=== PATIENT | female | born 1975 | race Caucasian/White ===

== ENCOUNTER 2018-06-20 14:03 | Inpatient (IN) | payer BC, OTHER ==
[2018-06-20] MEDS ORDERED: SODIUM CHLORIDE 0.9% 1,000 ML IV STA (14:25)
[2018-06-20] MEDS ORDERED: ONDANSETRON 4 MG/2 ML VIAL IVP STA (14:25)
[2018-06-20 15:23] LABS: Albumin 1.9 g/dL (3.5-5.0); Calcium 7.8 mg/dL (8.4-10.2); Potassium 4.2 mmol/L (3.5-5.1); Total Bilirubin 0.3 mg/dL (0.2-1.3); Total Protein 4.5 g/dL (6.3-8.2)
[2018-06-20 15:40] LABS: Bacteria,Urine Rare /hpf; Granular Casts,Urine 1784 /lpf (0); Hyaline Casts,Urine 188 /lpf (0-2); RBC,Urine >182 /hpf (0-5); Squamous Epithelial Cell,Urine 5 /hpf (0-4); WBC,Urine 138 /hpf (0-5)
[2018-06-20 15:41] LABS: Appearance,Urine Bloody (Clear); Color,Urine Red
--- NOTE | 2018-06-20 15:43 | ED ---
Abdominal Pain HPI - General Chief Complaint: Abdominal Pain Stated Complaint: abdominal pain Time Seen by Provider: 06/20/18 14:17 Source: patient Mode of arrival: ambulatory Limitations: no limitations - History of Present Illness Initial Comments: 43-year-old female presents today for chief complaint of abdominal pain. Patient states she has had extreme cramping everywhere however mostly under the right upper ribs. She states it radiates towards the low back. Patient states she has not had anything solid to eat since Monday. He states any shower she blacked out from the pain. She states that she did not hit her head and she sat down in the shower. Patient states she has had occasional vomiting her stool since then usual. Patient states she has had chills. Patient states occasionally she has had a tight feeling in the right upper chest because the whole tingling ache that she sweats and has a hot flash. Patient states last episode of emesis was earlier this morning she states it was mostly bile. Patient denies any previous abdominal surgeries. She states she struggled with chronic abdominal pain since age of 19. Patient travels for work she states when she was in [place] went to the emergency department for abdominal pain that was similar. She states was given Bentyl at that time. Patient states she had a colonoscopy as well as an endoscopy performed revealing no abnormalities noted of the Route diverticulitis. Patient states she takes no medications. Patient denies melena hematochezia fever, hematemesis. Patient denies chest pain, dyspnea or dyspnea on exertion lower extremity swelling remaining review of syst ems negative upon arrival patient is holding stomach, appears uncomfortable. - Related Data Home Medications Medication Instructions Recorded Confirmed Doxylam/PE/Dm/Acetaminophen/GG 2 cap PO Q6H PRN 06/20/18 06/20/18 [Mucinex Fast-Max Dy-Nt Cld-Flu] [place] (Unknown Dose) 1 tab PO BID PRN 06/20/18 06/20/18 Allergies Allergy/AdvReac Type Severity Reaction Status Date / Time No Known Allergies Allergy Verified 06/20/18 14:30 Review of Systems ROS Statement: Those systems with pertinent positive or pertinent negative responses have been documented in the HPI. ROS Other: All systems not noted in ROS Statement are negative. Past Medical History Additional Past Medical History / Comment(s): abdominal pain problems since age 14, IBS, HPV History of Any Multi-Drug Resistant Organisms: None Reported Additional Past Surgical History / Comment(s): Leep procedure x 2 Past Psychological History: No Psychological Hx Reported Smoking Status: Former smoker Past Alcohol Use History: Occasional Past Drug Use History: Marijuana General Exam - General Exam Comments Initial Comments: General: The patient is awake and alert, appears uncomfortable Eye: Pupils are equal, round and reactive to light, extra-ocular movements are intact. No nystagmus. There is normal conjunctiva bilaterally. No signs of icterus. Ears, nose, mouth and throat: There are moist mucous membranes and no oral lesions. Neck: The neck is supple, there is no tenderness or JVD. Cardiovascular: There is a regular rate and rhythm. No murmur, rub or gallop is appreciated. Respiratory: Lungs are clear to auscultation, respirations are non-labored, breath sounds are equal. No wheezes, stridor, rales, or rhonchi. Gastrointestinal: No noted diaphoresis, jaundice, pallor, protecting postures or squirming. Symmetrical pigmentation of abdomen without signs of inflammation. Umbilicus mildline, inverted without swelling. No dilated veins. No noted abdominal diste ntion. No visible masses. No peristalsis, aortic pulsations, or ventral hernia. Bowel sounds audible in all 4 quadrants, unremarkable. No friction rubs or venous hums. No epigastic, hepatic or abdominal bruits. Patient is tender to palpation of the epigastric and right upper quadrant, positive Stubbs's sign. Liver edge, not palpable. Spleen edge, right and left kidney not palpable. Superior bladder margin non-tender. Special Testing: Negative Rovsing, McBurney, Juliana, cutaneous hyperesthesia. Iliopsoas and obturator tests negative bilaterally. Negative Heel Jar test/jalil sign. No CVA tenderness. Digital rectal exam deferred. Negative augustine turners or cullens sign Musculoskeletal: Normal ROM, no tenderness. Strength 5/5. Sensation intact. Pulses equal bilaterally 2+. Neurological: A&O x 3. CN II-XII intact, There are no obvious motor or sensory deficits. Coordination appears grossly intact. Speech is normal. Skin: Skin is warm and dry and no rashes or lesions are noted. Psychiatric: Cooperative, appropriate mood & affect, normal judgment. Limitations: no limitations Course Vital Signs 06/20/18 06/20/18 14:06 16:42 Temperature 97.7 F Pulse Rate 117 H 85 Respiratory 20 18 Rate Blood Pressure 125/85 125/84 O2 Sat by Pulse 98 100 Oximetry Medical Decision Making - Medical Decision Making A 12-lead EKG was performed and shows the following: Rate is 88bpm, and rhythm is normal sinus. There are normal QRS complexes and normal R-wave progression. ST segments have no elevation or depression, and MA segments appear normal. MA interval 118 ms, QRS duration 92 ms, QT/QTC 386/467 ms. 43-year-old female presenting for epigastric and right upper quadrant pain. Positive Stubbs sign. Patient appears uncomfortable. Patient has mild leukocytosis. There is elevation of creatinine however I'm unable to obtain baseline as patient has never presented emergency department in the past. Patient has a known history of kidney disease. Ultrasounds obtained revealing free fluid of the right upper quadrant. Thickening of the gallbladder wall. Concerning for acute cholecystitis. I feel this is consistent patient clinical presentation. CT was obtained revealing inflammatory changes of the pancreas. However patient lipase within normal limits. No evidence of stone within the gallbladder or the common bile duct. Patient does not appear toxic. Patient be started on Zosyn. On-call surgeon Dr. Colvin was contacted by attending provider Dr. Steen after I discussed the case with attending provider. Dr. Nathan will take the patient to the OR. Patient is agreeable with surgery at this time, laparoscopic removal of the gallbladder. She is aware of risks involved. Pt states she prefers surgery as she feels she has had issues with her GB for quite some time now. Pt was transferred to the OR in stable condition appearing well. - Lab Data Result diagrams: 06/20/18 15:01 06/20/18 15:01 Lab Results 06/20/18 06/20/18 06/20/18 Range/Units 15:01 15:01 15:01 WBC 6.2 (3.8-10.6) k/uL RBC 6.05 H (3.80-5.40) m/uL Hgb 18.8 H (11.4-16.0) gm/dL Hct 54.3 H (34.0-46.0) % MCV 89.9 (80.0-100.0) fL MCH 31.1 (25.0-35.0) pg MCHC 34.6 (31.0-37.0) g/dL RDW 13.6 (11.5-15.5) % Plt Count 350 (150-450) k/uL Neutrophils % 75 % Lymphocytes % 16 % Monocytes % 6 % Eosinophils % 1 % Basophils % 1 % Neutrophils # 4.7 (1.3-7.7) k/uL Lymphocytes # 1.0 (1.0-4.8) k/uL Monocytes # 0.3 (0-1.0) k/uL Eosinophils # 0.1 (0-0.7) k/uL Basophils # 0.0 (0-0.2) k/uL Sodium 131 L (137-145) mmol/L Potassium 4.2 (3.5-5.1) mmol/L Chloride 104 (98-107) mmol/L Carbon Dioxide 21 L (22-30) mmol/L Anion Gap 6 mmol/L BUN 24 H (7-17) mg/dL Creatinine 1.45 H (0.52-1.04) mg/dL Est GFR (CKD-EPI)AfAm 52 (>60 ml/min/1.73 sqM) Est GFR (CKD-EPI)NonAf 45 (>60 ml/min/1.73 sqM) Glucose 121 H (74-99) mg/dL Calcium 7.8 L (8.4-10.2) mg/dL Total Bilirubin 0.3 (0.2-1.3) mg/dL AST 39 H (14-36) U/L ALT 25 (9-52) U/L Alkaline Phosphatase 59 (38-126) U/L Troponin I <0.012 (0.000-0.034) ng/mL Total Protein 4.5 L (6.3-8.2) g/dL Albumin 1.9 L (3.5-5.0) g/dL Amylase 54 (30-110) U/L Lipase 96 (23-300) U/L Urine Color Urine Appearance (Clear) Urine RBC (0-5) /hpf Urine WBC (0-5) /hpf Urine WBC Clumps (None) /hpf Ur Squamous Epith Cells (0-4) /hpf Urine Bacteria (None) /hpf Hyaline Casts (0-2) /lpf Granular Casts (0) /lpf Urine HCG, Qual (Not Detectd) 04/03/19 04/03/19 Range/Units 15:11 15:11 WBC (3.8-10.6) k/uL RBC (3.80-5.40) m/uL Hgb (11.4-16.0) gm/dL Hct (34.0-46.0) % MCV (80.0-100.0) fL MCH (25.0-35.0) pg MCHC (31.0-37.0) g/dL RDW (11.5-15.5) % Plt Count (150-450) k/uL Neutrophils % % Lymphocytes % % Monocytes % % Eosinophils % % Basophils % % Neutrophils # (1.3-7.7) k/uL Lymphocytes # (1.0-4.8) k/uL Monocytes # (0-1.0) k/uL Eosinophils # (0-0.7) k/uL Basophils # (0-0.2) k/uL Sodium (137-145) mmol/L Potassium (3.5-5.1) mmol/L Chloride (98-107) mmol/L Carbon Dioxide (22-30) mmol/L Anion Gap mmol/L BUN (7-17) mg/dL Creatinine (0.52-1.04) mg/dL Est GFR (CKD-EPI)AfAm (>60 ml/min/1.73 sqM) Est GFR (CKD-EPI)NonAf (>60 ml/min/1.73 sqM) Glucose (74-99) mg/dL Calcium (8.4-10.2) mg/dL Total Bilirubin (0.2-1.3) mg/dL AST (14-36) U/L ALT (9-52) U/L Alkaline Phosphatase (38-126) U/L Troponin I (0.000-0.034) ng/mL Total Protein (6.3-8.2) g/dL Albumin (3.5-5.0) g/dL Amylase (30-110) U/L Lipase (23-300) U/L Urine Color Red Urine Appearance Bloody H (Clear) Urine RBC >182 H (0-5) /hpf Urine WBC 138 H (0-5) /hpf Urine WBC Clumps Many H (None) /hpf Ur Squamous Epith Cells 5 H (0-4) /hpf Urine Bacteria Rare H (None) /hpf Hyaline Casts 188 H (0-2) /lpf Granular Casts 1784 (0) /lpf Urine HCG, Qual Not Detected (Not Detectd) Disposition Clinical Impression: Acute cholecystitis, Elevated serum creatinine, Hypocalcemia, Leukocytosis Disposition: ADMITTED IP TO THIS [facility] Condition: Stable Is patient prescribed a controlled substance at d/c from ED?: No Time of Disposition: 17:25 Decision to Admit Reason: Admit from EC Decision Date: 06/20/18 Decision Time: 17:25
[2018-06-20 15:51] LABS: Basophils % (A) 1 %; Eosinophils # (A) 0.1 k/uL (0-0.7); Eosinophils % (A) 1 %; HCT 54.3 % (34.0-46.0); HGB 18.8 gm/dL (11.4-16.0); Lymphocytes % (A) 16 %; MCH 31.1 pg (25.0-35.0); MCHC 34.6 g/dL (31.0-37.0); MCV 89.9 fL (80.0-100.0); Mean Platelet Volume 8.3; Monocytes # (A) 0.3 k/uL (0-1.0); Monocytes % (A) 6 %; Neutrophils # (A) 4.7 k/uL (1.3-7.7); Neutrophils % (A) 75 %; Platelet Count 350 k/uL (150-450); RBC 6.05 m/uL (3.80-5.40); RDW 13.6 % (11.5-15.5); WBC 6.2 k/uL (3.8-10.6)
--- NOTE | 2018-06-20 16:09 | XR ---
EXAMINATION TYPE: XR chest 2V DATE OF EXAM: 06/20/2018 COMPARISON: NONE HISTORY: Pain TECHNIQUE: Frontal and lateral views of the chest are obtained. FINDINGS: There is no focal air space opacity, pleural effusion, or pneumothorax seen. The cardiac silhouette size is within normal limits. The osseous structures are intact. IMPRESSION: No acute cardiopulmonary process.
--- NOTE | 2018-06-20 16:12 | US ---
EXAMINATION TYPE: US abdomen limited DATE OF EXAM: 06/20/2018 COMPARISON: NONE CLINICAL HISTORY: Pain. Abdomen pain and N/V x couple days EXAM MEASUREMENTS: Liver Length: 12.8 cm Gallbladder Wall: 0.5 cm CBD: 0.4 cm Right Kidney: 10.3 x 4.5 x 5.5 cm Pancreas: wnl Liver: wnl Gallbladder: wall thickening at 0.5cm, small amount of pericholecystic fluid Evidence for sonographic Stubbs's sign: no CBD: wnl Right Kidney: Questionable increased cortical echogenicity. Cortical medullary differentiation is ma intained. There is no hydronephrosis. Small amount of free fluid in RUQ IMPRESSION: Correlate for cholecystitis, correlate for possible medical renal disease. Limited exam.
[2018-06-20] MEDS ORDERED: SODIUM CHLORIDE 0.9% 500 ML 500 ML IV ONE (16:24)
--- NOTE | 2018-06-20 16:35 | CT ---
EXAMINATION TYPE: CT abdomen pelvis wo con DATE OF EXAM: 06/20/2018 COMPARISON: None INDICATION: Upper Abdominal pain on and off x's years. severe pain for 2-3 days DLP: 369.3 mGycm, Automated exposure control for dose reduction was used. CONTRAST: 0 mL of Isovue 300. Study performed without Oral Contrast TECHNIQUE: Axial images were obtained from above the diaphragm to the pubic rami in the axial plane a t 5 mm thick sections. Reconstructed images are reviewed on the computer in the coronal plane. FINDINGS: Limited CT sections are obtained the lung bases. The lung bases are clear. CT ABDOMEN: Small amount of ascites is within the abdomen adjacent to the spleen Liver: Normal Spleen: Normal Pancreas: Pancreas appears prominent with peripancreatic inflammatory changes. No discrete mass or cy st is evident. Findings are suggestive for acute pancreatitis. Clinical correlation recommended. Adrenal glands: The adrenal glands are normal. Gallbladder: Normal Kidneys: No masses are evident. No hydronephrosis is present. No cysts are present. No renal stone s are identified. Aorta: Normal Inferior vena cava: Normal. CT PELVIS: Fluid is within the paracolic gutters. No dilated loops of bowel are evident. Free fluid i s within the pelvis. Loops of bowel within the abdomen and pelvis are normal. There are loops of bowel which are incom pletely distended or lack oral contrast limiting their evaluation. Appendix: Not identified. No suspicious inflammatory changes or dilated tubular structures are eviden t. Clinical management of any suspected appendicitis will be required. Urinary bladder: Normal. Genitourinary structures: Uterus and adnexal regions are unremarkable. Osseous structures: No suspicious lytic or sclerotic lesions. IMPRESSIONS: 1. Prominent pancreas with peripancreatic inflammatory changes. Correlate for acute pancreatitis. 2. Ascites.
[2018-06-20] MEDS ORDERED: MORPHINE SULFATE 2 MG/ML SYRINGE IVP STA (16:41)
[2018-06-20] MEDS ORDERED: PIPERACILLIN-TAZOBACTAM 3.375 GM in SODIUM CHLORIDE 0.9% 100 ML IVPB STA (16:46)
[2018-06-20] MEDS ORDERED: NALOXONE 0.4 MG/ML 1 ML VIAL IV PRN ×2 (17:07→18:56)
[2018-06-20] MEDS ORDERED: SODIUM CHLORIDE 0.9% 1,000 ML IV SCH (17:15)
--- NOTE | 2018-06-20 18:23 | P.GSHP ---
History of Present Illness H&P Date: 06/20/18 Chief Complaint: Right upper quadrant pain Is a 43-year-old female who's had right quadrant pain off and on for the last several years. Patient states the pain is worsened over the last week. Patient presents emergency room. She was worked up and found have an extremely t hickened gallbladder wall suggestive of acute cholecystitis. Patient states that she has had nausea vomiting for the last several days. She states that her significant pain is in the right upper quadrant. Past Medical History Additional Past Medical History / Comment(s): abdominal pain problems since age 14, IBS, HPV History of Any Multi-Drug Resistant Organisms: None Reported Additional Past Surgical History / Comment(s): Leep procedure x 2 Past Psychological History: No Psychological Hx Reported Smoking Status: Former smoker Past Alcohol Use History: Occasional Past Drug Use History: Marijuana Medications and Allergies Home Medications Medication Instructions Recorded Confirmed Type Doxylam/PE/Dm/Acetaminophen/GG 2 cap PO Q6H PRN 06/20/18 06/20/18 History [Mucinex Fast-Max Dy-Nt Cld-Flu] [place] (Unknown Dose) 1 tab PO BID PRN 06/20/18 06/20/18 History Allergies Allergy/AdvReac Type Severity Reaction Status Date / Time No Known Allergies Allergy Verified 06/20/18 14:30 Surgical - Exam Vital Signs Temp Pulse Resp BP Pulse Ox 97.7 F 117 H 20 125/85 98 06/20/18 14:06 06/20/18 14:06 06/20/18 14:06 06/20/18 14:06 06/20/18 14:06 - General well developed, well nourished, no distress - Eyes PERRL - ENT normal pinna - Neck no masses - Respiratory normal expansion - Cardiovascular Rhythm: regular - Abdomen Marked right upper quadrant tenderness Abdomen: soft Results - Labs 06/20/18 15:01 06/20/18 15:01 Abnormal Lab Results - Last 24 Hours (Table) 06/20/18 06/20/18 06/20/18 Range/Units 15:01 15:01 15:11 RBC 6.05 H (3.80-5.40) m/uL Hgb 18.8 H (11.4-16.0) gm/dL Hct 54.3 H (34.0-46.0) % Sodium 131 L (137-145) mmol/L Carbon Dioxide 21 L (22-30) mmol/L BUN 24 H (7-17) mg/dL Creatinine 1.45 H (0.52-1.04) mg/dL Glucose 121 H (74-99) mg/dL Calcium 7.8 L (8.4-10.2) mg/dL AST 39 H (14-36) U/L Total Protein 4.5 L (6.3-8.2) g/dL Albumin 1.9 L (3.5-5.0) g/dL Urine Appearance Bloody H (Clear) Urine RBC >182 H (0-5) /hpf Urine WBC 138 H (0-5) /hpf Urine WBC Clumps Many H (None) /hpf Ur Squamous Epith Cells 5 H (0-4) /hpf Urine Bacteria Rare H (None) /hpf Hyaline Casts 188 H (0-2) /lpf Diabetes panel 06/20/18 Range/Units 15:01 Sodium 131 L (137-145) mmol/L Potassium 4.2 (3.5-5.1) mmol/L Chloride 104 (98-107) mmol/L Carbon Dioxide 21 L (22-30) mmol/L BUN 24 H (7-17) mg/dL Creatinine 1.45 H (0.52-1.04) mg/dL Glucose 121 H (74-99) mg/dL Calcium 7.8 L (8.4-10.2) mg/dL AST 39 H (14-36) U/L ALT 25 (9-52) U/L Alkaline Phosphatase 59 (38-126) U/L Total Protein 4.5 L (6.3-8.2) g/dL Albumin 1.9 L (3.5-5.0) g/dL Calcium panel 06/20/18 Range/Units 15:01 Calcium 7.8 L (8.4-10.2) mg/dL Albumin 1.9 L (3.5-5.0) g/dL Pituitary panel 06/20/18 Range/Units 15:01 Sodium 131 L (137-145) mmol/L Potassium 4.2 (3.5-5.1) mmol/L Chloride 104 (98-107) mmol/L Carbon Dioxide 21 L (22-30) mmol/L BUN 24 H (7-17) mg/dL Creatinine 1.45 H (0.52-1.04) mg/dL Glucose 121 H (74-99) mg/dL Calcium 7.8 L (8.4-10.2) mg/dL Adrenal panel 06/20/18 Range/Units 15:01 Sodium 131 L (137-145) mmol/L Potassium 4.2 (3.5-5.1) mmol/L Chloride 104 (98-107) mmol/L Carbon Dioxide 21 L (22-30) mmol/L BUN 24 H (7-17) mg/dL Creatinine 1.45 H (0.52-1.04) mg/dL Glucose 121 H (74-99) mg/dL Calcium 7.8 L (8.4-10.2) mg/dL Total Bilirubin 0.3 (0.2-1.3) mg/dL AST 39 H (14-36) U/L ALT 25 (9-52) U/L Alkaline Phosphatase 59 (38-126) U/L Total Protein 4.5 L (6.3-8.2) g/dL Albumin 1.9 L (3.5-5.0) g/dL - Imaging CT scan - abdomen: report reviewed (Thickened gallbladder wall) Assessment and Plan Assessment: Acute cholecystitis. Patient undergo laparoscopic cholecystectomy.
[2018-06-20] MEDS ORDERED: PROPOFOL 10 MG/ML 20 ML VIAL IV ONE (18:24)
[2018-06-20] MEDS ORDERED: NEOSTIGMINE 1 MG/ML 10 ML VIAL ONE (18:24)
[2018-06-20] MEDS ORDERED: ROCURONIUM BROMIDE 10 MG/ML 10 ML VIAL IV ONE (18:24)
[2018-06-20] MEDS ORDERED: LIDOCAINE 1% INJ 10MG/ML (20 ML MDV) ONE (18:24)
[2018-06-20] MEDS ORDERED: HYDROmorphone (PF) 1 MG/ML ONE (18:24)
[2018-06-20] MEDS ORDERED: fentaNYL (PF) 50 MCG/ML 2 ML AMP ONE (18:24)
[2018-06-20] MEDS ORDERED: GLYCOPYRROLATE 0.2 MG/ML 2 ML VIAL ONE (18:24)
[2018-06-20] MEDS ORDERED: MIDAZOLAM 2 MG/2 ML VIAL ONE (18:24)
[2018-06-20] MEDS ORDERED: KETOROLAC 30 MG/ML 1 ML VIAL ONE (18:24)
[2018-06-20] MEDS ORDERED: SUCCINYLCHOLINE CHLORIDE 100 MG/5 ML SYR IV ONE (18:24)
[2018-06-20] MEDS ORDERED: IV FLUID CONTINUATION 800 ML IV ONE (18:24)
[2018-06-20] MEDS ORDERED: BUPIVACAIN-EPI 0.5%-1:200,000 30 ML VIAL SQ ONE ×2 (18:30→18:39)
[2018-06-20] MEDS ORDERED: METOCLOPRAMIDE 5 MG/ML 2 ML VIAL IVP PRN (18:56)
[2018-06-20] MEDS ORDERED: ACETAMINOPHEN TAB 325 MG TAB PO PRN (18:56)
[2018-06-20] MEDS ORDERED: LACTATED RINGERS 1,000 ML IV ONE ×2 (18:56→18:59)
--- NOTE | 2018-06-20 18:59 | P.OP ---
Date of Procedure: 06/20/18 Preoperative Diagnosis: Acute cholecystitis Postoperative Diagnosis: Acute cholecystitis Procedure(s) Performed: Laparoscopic cholecystectomy Anesthesia: ANGELA Surgeon: Jae Nathan Estimated Blood Loss (ml): 5 Pathology: other (Gallbladder) Condition: stable Disposition: PACU Description of Procedure: The patient was placed on the operating table. The patient received a general endotracheal tube anesthesia. The patients abdomen was prepped and draped in the usual sterile fashion. Through an infraumbilical stab incision, the fascia of the anterior abdominal wall was grasped with a pair of Kochers and then the Veress needle was placed in the peritoneal cavity. Position of the Veress needle was confirmed with positive drop test. The abdomen was then insufflated. After adequate insufflation, the 10 mm trocar was placed in the peritoneal cavity. Following this the laparoscope was placed in the peritoneal cavity. The patient was placed in the head-up, right side up position and then a 5 mm trocar was placed in the right lateral and right subcostal position under direct visualization. A 8 mm trocar was placed in the epigastric position. There is approximately 200 mL of ascites in the abdomen. The gallbladder appeared to be quite inflamed. The gallbladder wall was quite edematous. The gallbladder was grasped in the fundus and infundibulum. Traction on the gallbladder was placed in the lateral and the cephalad positions. The triangle of Calot was visualized.. The cystic duct was bluntly dissected until the union of the cystic duct and common bile duct was seen. The cystic duct was then divided and sealed with the Harmonic scissors. A PDS Endoloop was then placed throughout the cystic duct stump. The cystic artery divided and sealed with the Harmonic scissors. The gallbladder was then removed from the liver bed using Harmonic scissors. The gallbladder was then extracted through the epigastric port site. Operative field was checked for any bleeding spots and Harmonic scissors was used to coagulate the liver bed. The abdomen was irrigated. The trocars were removed. The skin was closed using interrupted 3-0 Vicryl suture. Dermabond dressing were applied. The patient tolerated the procedure well.
[2018-06-20] MEDS ORDERED: HYDROmorphone 1 MG/ML 1 ML SYRINGE IVP ONE ×2 (19:15→19:20)
[2018-06-20] MEDS ORDERED: MEPERIDINE 50 MG/ML SYRINGE IVP ONE (19:30)
[2018-06-20] MEDS: ONDANSETRON 4 MG/2 ML VIAL IVP PRN (20:31)
[2018-06-20] MEDS: HYDROcodone/APAP 5-325MG 1 EACH TAB PO PRN (22:23)
[2018-06-21] MEDS: HYDROcodone/APAP 5-325MG 1 EACH TAB PO PRN ×2 (04:43→20:16)
[2018-06-21] MEDS ORDERED: ENOXAPARIN 40 MG/0.4 ML SYRINGE SQ SCH (09:00)
[2018-06-21 10:05] LABS: Albumin 1.6 g/dL (3.5-5.0); Calcium 7.2 mg/dL (8.4-10.2); Potassium 4.3 mmol/L (3.5-5.1); Total Bilirubin 0.2 mg/dL (0.2-1.3); Total Protein 3.6 g/dL (6.3-8.2)
[2018-06-21] MEDS ORDERED: SODIUM CHLORIDE 0.9% 1,000 ML IV ONE ×2 (10:13→10:14)
[2018-06-21 10:20] LABS: Basophils % (A) 0 %; Eosinophils % (A) 0 %; HCT 45.5 % (34.0-46.0); Lymphocytes # (A) 1.9 k/uL (1.0-4.8); Lymphocytes % (A) 24 %; MCH 30.1 pg (25.0-35.0); MCHC 33.4 g/dL (31.0-37.0); MCV 90.2 fL (80.0-100.0); Mean Platelet Volume 8.1; Monocytes # (A) 0.6 k/uL (0-1.0); Monocytes % (A) 7 %; Neutrophils # (A) 5.3 k/uL (1.3-7.7); Neutrophils % (A) 66 %; Platelet Count 403 k/uL (150-450); RBC 5.04 m/uL (3.80-5.40); RDW 13.4 % (11.5-15.5)
[2018-06-21 10:37] LABS: HGB 15.2 gm/dL (11.4-16.0)
[2018-06-21 10:51] LABS: Amylase 60 U/L (30-110); Lipase 97 U/L (23-300)
--- NOTE | 2018-06-21 12:45 | P.PN ---
Subjective Progress Note Date: 06/21/18 CHIEF COMPLAINT: Abdominal pain HISTORY OF PRESENT ILLNESS: 43-year-old female who underwent laparoscopic cholecystectomy secondary to acute cholecystitis. POD #1. Patient was examined at the bedside. She reports her pain is tolerable at this time. Tolerating clear liquids. WBC 8.0. Hemoglobin 15.2. BUN 28. Creatinine 2.41, up from 1.45. AST 56. ALT 32. Amylase and lipase within normal limits. PHYSICAL EXAM: VITAL SIGNS: Reviewed. GENERAL: Well-developed in no acute distress. HEENT: No sclera icterus. Extraocular movements grossly intact. Moist buccal mucosa. Head is atraumatic, normocephalic. ABDOMEN: Soft. Nondistended. Positive bowel sounds. Surgical incision sites clean dry and intact without drainage. NEUROLOGIC: Alert and oriented. Cranial nerves II through XII grossly intact. ASSESSMENT: 1. Acute cholecystitis, status post laparoscopic cholecystectomy 2. Chronic abdominal pain PLAN: 1. Continue clear liquid diet at this time 2. 2L fluid bolus. IV fluids at 150cc post bolus 3. Activity as tolerated 4. Incentive spirometry 5. Repeat labs in AM Nurse practitioner note has been reviewed by physician. Signing provider agrees with the documented findings, assessment, and plan of care. Objective - Vital Signs Vital signs: Vital Signs Temp 97.9 F 06/21/18 07:14 Pulse 61 06/21/18 07:14 Resp 14 06/21/18 07:14 BP 124/78 06/21/18 07:14 Pulse Ox 98 06/21/18 07:14 Intake & Output 06/20/18 06/21/18 06/21/18 18:59 06:59 18:59 Intake Total 800 1750 300 Output Total 5 100 Balance 795 1650 300 Weight 56.699 kg Intake: IV 800 600 Intake, IV Titration 1150 Amount Lactated Ringers 1,000 ml 925 @ 175 mls/hr IV .[id number] ONE Rx#:[id number] Sodium Chloride 0.9% 1, 225 000 ml @ 75 mls/hr IV . [id number] Rx#:[id number] Oral 300 Output: Urine 100 Estimated Blood Loss 5 Other: Voiding Method Toilet Toilet - Labs CBC & Chem 7: 06/21/18 09:25 06/21/18 09:25 Labs: Abnormal Lab Results - Last 24 Hours (Table) 06/20/18 06/20/18 06/20/18 Range/Units 15:01 15:01 15:11 RBC 6.05 H (3.80-5.40) m/uL Hgb 18.8 H (11.4-16.0) gm/dL Hct 54.3 H (34.0-46.0) % Sodium 131 L (137-145) mmol/L Carbon Dioxide 21 L (22-30) mmol/L BUN 24 H (7-17) mg/dL Creatinine 1.45 H (0.52-1.04) mg/dL Glucose 121 H (74-99) mg/dL Calcium 7.8 L (8.4-10.2) mg/dL AST 39 H (14-36) U/L Total Protein 4.5 L (6.3-8.2) g/dL Albumin 1.9 L (3.5-5.0) g/dL Urine Appearance Bloody H (Clear) Urine RBC >182 H (0-5) /hpf Urine WBC 138 H (0-5) /hpf Urine WBC Clumps Many H (None) /hpf Ur Squamous Epith Cells 5 H (0-4) /hpf Urine Bacteria Rare H (None) /hpf Hyaline Casts 188 H (0-2) /lpf 06/21/18 Range/Units 09:25 RBC (3.80-5.40) m/uL Hgb (11.4-16.0) gm/dL Hct (34.0-46.0) % Sodium 132 L (137-145) mmol/L Carbon Dioxide (22-30) mmol/L BUN 28 H (7-17) mg/dL Creatinine 2.41 H (0.52-1.04) mg/dL Glucose (74-99) mg/dL Calcium 7.2 L (8.4-10.2) mg/dL AST 56 H (14-36) U/L Total Protein 3.6 L (6.3-8.2) g/dL Albumin 1.6 L (3.5-5.0) g/dL Urine Appearance (Clear) Urine RBC (0-5) /hpf Urine WBC (0-5) /hpf Urine WBC Clumps (None) /hpf Ur Squamous Epith Cells (0-4) /hpf Urine Bacteria (None) /hpf Hyaline Casts (0-2) /lpf
[2018-06-21 21:31] LABS: Appearance,Urine Turbid (Clear); Bilirubin,Urine Negative (Negative); Blood,Urine Moderate (Negative); Color,Urine Yellow; Glucose,Urine (UA) Negative (Negative); Granular Casts,Urine 81 /lpf (0); Ketones,Urine Trace (Negative); Leukocyte Esterase,Urine Negative (Negative); Mucus,Urine Rare /hpf; Nitrite,Urine Negative (Negative); Protein,Urine 3+ (Negative); RBC,Urine 13 /hpf (0-5); Squamous Epithelial Cell,Urine 14 /hpf (0-4); Urobilinogen,Urine <2.0 mg/dL (<2.0)
--- NOTE | 2018-06-21 23:33 | P.CONS ---
History of Present Illness - Reason for Consult Consult date: 06/21/18 Medical management - Chief Complaint Abdominal pain - History of Present Illness Patient is a 43-year-old female with a known history of IBS, HPV and has been having abdominal pain problems since is 14, history of marijuana use came to ER with complaints of abdominal pain. Abdominal pain is mainly undergoing right ribs cramping type and radiates to the back. Patient has been having abdominal symptoms for the past several years. Her symptoms got worse during last week. Patient was not able to keep down any food since last Monday. She blacked out when she was in shower yesterday. Did not fall suddenly hit her head. Patient does have nausea associated the pain. No episodes of vomiting this time. Denied fever or chills. No skin discoloration. No chest pain or shortness of breath. No headache. No diarrhea. Patient travels for work she states when she was in [place] went to the emergency department for abdominal pain that was similar. She states was given Bentyl at that time. Patient states she had a colonoscopy as well as an endoscopy performed revealing no abnormalities noted of the Route diverticulitis. Patient states she takes no medications. Patient denies melena hematochezia fever, hematemesis. Patient denies chest pain, dyspnea or dyspnea on exertion lower e xtremity swelling. CT of abdomen pelvis showed prominent pancreas with periPancreatic inflammatory changes. Correlate for acute pancreatitis. Ascites. Chest x-ray showed no acute cardio pulmonary process Ultrasound of ABDOMEN SHOWED correlate for acute cholecystitis. Correlate for possible medical renal disease. Review of Systems Constitutional: Patient denies any fever or chills . No generalized weakness or weight loss. Abdomen: Patient does have right upper quadrant abdominal pain. Nausea. No vomiting. No diarrhea.. Cardiovascular: Patient denies any chest pain or short of breath no palpitations. Respiratory: patient denied any cough is from production. No shortness of breath Neurologic: Patient denied any numbness or tingling headache. Musculoskeletal: Patient denies any complaints of joint swelling or deformity. Skin: Negative Psychiatric: Negative Endocrine: No heat or cold intolerance. No recent weight gain. Genitourinary: No dysuria or hematuria. All other 14 point ROS negative except the above Past Medical History Additional Past Medical History / Comment(s): abdominal pain problems since age 14, IBS, HPV History of Any Multi-Drug Resistant Organisms: None Reported Additional Past Surgical History / Comment(s): Leep procedure x 2 Past Psychological History: No Psychological Hx Reported Smoking Status: Former smoker Past Alcohol Use History: Occasional Past Drug Use History: Marijuana Medications and Allergies Home Medications Medication Instructions Recorded Confirmed Type Doxylam/PE/Dm/Acetaminophen/GG 2 cap PO Q6H PRN 06/20/18 06/20/18 History [Mucinex Fast-Max Dy-Nt Cld-Flu] [place] (Unknown Dose) 1 tab PO BID PRN 06/20/18 06/20/18 History Allergies Allergy/AdvReac Type Severity Reaction Status Date / Time No Known Allergies Allergy Verified 06/20/18 14:30 Physical Exam Vitals: Vital Signs Temp Pulse Pulse Pulse Resp BP BP 06/21/18 07:14 97.9 F 61 14 124/78 06/21/18 02:25 97.7 F 64 16 92/59 06/20/18 20:57 97.8 F 60 16 118/77 06/20/18 20:05 66 16 124/77 06/20/18 19:50 65 16 06/20/18 19:35 87 16 06/20/18 19:20 65 16 06/20/18 19:05 97.7 F 69 16 06/20/18 16:42 85 18 125/84 06/20/18 14:06 97.7 F 117 H 20 125/85 Pulse Ox 06/21/18 07:14 98 06/21/18 02:25 93 L 06/20/18 20:57 100 06/20/18 20:05 97 06/20/18 19:50 95 06/20/18 19:35 97 06/20/18 19:20 97 06/20/18 19:05 95 06/20/18 16:42 100 06/20/18 14:06 98 Intake and Output 06/20/18 06/21/18 06/21/18 22:59 06:59 14:59 Intake Total 1400 1150 300 Output Total 5 100 Balance 1395 1050 300 Intake: IV 1400 Intake, IV Titration 1150 Amount Lactated Ringers 1,000 ml 925 @ 175 mls/hr IV .Q5H43M [facility] Rx#:[id number] Sodium Chloride 0.9% 1, 225 000 ml @ 75 mls/hr IV . [id number] [facility] Rx#:[id number] Oral 300 Output: Urine 100 Estimated Blood Loss 5 Other: Voiding Method Toilet Toilet PHYSICAL EXAMINATION: Patient is lying in the bed comfortably, no acute distress, awake alert and oriented.. HEENT: Normocephalic. Neck is supple. Pupils reactive. Nostrils clear. Oral cavity is moist. Ears reveal no drainage. Neck reveals no JVD, carotid bruits, or thyromegaly. CHEST EXAMINATION: Trachea is central. Symmetrical expansion. Lung ayoub clear to auscultation and percussion. CARDIAC: Normal S1, S2 with no gallops. No murmurs ABDOMEN: Soft. Surgical site is bandaged. Bowel sounds normal. No organomegaly. No abdominal bruits. Extremities: reveal no edema. No clubbing or cyanosis Neurologically awake, alert, oriented x3 with well-coordinated movements. No focal deficits noted Skin: No rash or skin lesions. Psychiatric: Coperative. Nonsuicidal Musculoskeletal: No joint swelling or deformity. Normal range of motion. Results CBC & Chem 7: 06/21/18 09:25 06/21/18 09:25 Labs: Abnormal Lab Results - Last 24 Hours (Table) 06/20/18 06/20/18 06/20/18 Range/Units 15:01 15:01 15:11 RBC 6.05 H (3.80-5.40) m/uL Hgb 18.8 H (11.4-16.0) gm/dL Hct 54.3 H (34.0-46.0) % Sodium 131 L (137-145) mmol/L Carbon Dioxide 21 L (22-30) mmol/L BUN 24 H (7-17) mg/dL Creatinine 1.45 H (0.52-1.04) mg/dL Glucose 121 H (74-99) mg/dL Calcium 7.8 L (8.4-10.2) mg/dL AST 39 H (14-36) U/L Total Protein 4.5 L (6.3-8.2) g/dL Albumin 1.9 L (3.5-5.0) g/dL Urine Appearance Bloody H (Clear) Urine RBC >182 H (0-5) /hpf Urine WBC 138 H (0-5) /hpf Urine WBC Clumps Many H (None) /hpf Ur Squamous Epith Cells 5 H (0-4) /hpf Urine Bacteria Rare H (None) /hpf Hyaline Casts 188 H (0-2) /lpf 06/21/18 Range/Units 09:25 RBC (3.80-5.40) m/uL Hgb (11.4-16.0) gm/dL Hct (34.0-46.0) % Sodium 132 L (137-145) mmol/L Carbon Dioxide (22-30) mmol/L BUN 28 H (7-17) mg/dL Creatinine 2.41 H (0.52-1.04) mg/dL Glucose (74-99) mg/dL Calcium 7.2 L (8.4-10.2) mg/dL AST 56 H (14-36) U/L Total Protein 3.6 L (6.3-8.2) g/dL Albumin 1.6 L (3.5-5.0) g/dL Urine Appearance (Clear) Urine RBC (0-5) /hpf Urine WBC (0-5) /hpf Urine WBC Clumps (None) /hpf Ur Squamous Epith Cells (0-4) /hpf Urine Bacteria (None) /hpf Hyaline Casts (0-2) /lpf Assessment and Plan Assessment: Abdominal pain secondary to acute cholecystitis status post laparoscopic cholecystectomy. Postoperative day 1 Acute kidney injury most likely prerenal. Possible ATN. Hypovolemic hyponatremia Hypocalcemia. Rule out vitamin D deficiency Hypoalbuminemia/moderate protein calorie malnutrition Abnormal urine analysis. Possible contaminant sample DVT prophylaxis l Plan: Patient be continued on IV hydration. Monitor renal function. Currently tolerating liquid diet. Has not passed flatness. Encourage ambulation and gayathri ntive spirometry. Pain medications and bowel regimen. We will continue to follow closely. Further recommendations based on the clinical course. Thank you for your consult. Time with Patient: Greater than 30
[2018-06-21] MEDS: SODIUM CHLORIDE 0.9% 1,000 ML IV SCH (23:35)
[2018-06-22] MEDS: SODIUM CHLORIDE 0.9% 1,000 ML IV SCH ×5 (00:11→23:42)
[2018-06-22] MEDS: HYDROmorphone 0.5 MG/0.5 ML SYRINGE IVP PRN ×2 (02:39→06:07)
[2018-06-22] MEDS: ONDANSETRON 4 MG/2 ML VIAL IVP PRN (07:02)
[2018-06-22 07:17] LABS: HCT 37.5 % (34.0-46.0); HGB 12.5 gm/dL (11.4-16.0); MCH 29.9 pg (25.0-35.0); MCHC 33.4 g/dL (31.0-37.0); MCV 89.6 fL (80.0-100.0); Mean Platelet Volume 8.8; Platelet Count 297 k/uL (150-450); RBC 4.19 m/uL (3.80-5.40); WBC 5.5 k/uL (3.8-10.6)
[2018-06-22 07:49] LABS: Albumin 1.4 g/dL (3.5-5.0); Potassium 3.8 mmol/L (3.5-5.1); Total Bilirubin 0.2 mg/dL (0.2-1.3); Total Protein 3.1 g/dL (6.3-8.2)
[2018-06-22 08:03] LABS: Calcium 6.4 mg/dL (8.4-10.2)
[2018-06-22 08:59] LABS: Eosinophils # (M) 0.22 k/uL (0-0.7); Lymphocytes # (M) 2.53 k/uL (1.0-4.8); Neutrophils # (M) 2.26 k/uL (1.3-7.7); Neutrophils % (M) 41 %; Nucleated Red Blood Cells 0 /100 WBC (0-0); Total Cells Counted 100
[2018-06-22] MEDS: ENOXAPARIN 30 MG/0.3 ML SYRINGE SQ SCH (09:04)
--- NOTE | 2018-06-22 11:23 | P.PN ---
Subjective Progress Note Date: 06/22/18 CHIEF COMPLAINT: Abdominal pain HISTORY OF PRESENT ILLNESS: 43-year-old female who underwent laparoscopic cholecystectomy secondary to acute cholecystitis. POD #2. Patient was examined at the bedside. She reports her pain is tolerable at this time. She reports nausea. No vomiting. Tolerating clear liquids but only taking a few sips here and there. Nursing attempted multiple times yesterday to get an IV without success so patient did not have IV fluids going for most of the shift. IV was finally established overnight. Patient received 2L in boluses and now has IV fluids running at 150cc. Creatinine 3.13 this morning, up from 2.41 PHYSICAL EXAM: VITAL SIGNS: Reviewed. GENERAL: Well-developed in no acute distress. HEENT: No sclera icterus. Extraocular movements grossly intact. Moist buccal mucosa. Head is atraumatic, normocephalic. ABDOMEN: Soft. Nondistended. Positive bowel sounds. Surgical incision sites clean dry and intact without drainage. NEUROLOGIC: Alert and oriented. Cranial nerves II through XII grossly intact. ASSESSMENT: 1. Acute cholecystitis, status post laparoscopic cholecystectomy 2. Chronic abdominal pain PLAN: 1. Continue clear liquid diet at this time 2. Continue IV fluids at 150cc/hr 3. Activity as tolerated 4. Incentive spirometry 5. Repeat BMP at 1500 Nurse practitioner note has been reviewed by physician. Signing provider agrees with the documented findings, assessment, and plan of care. Objective - Vital Signs Vital signs: Vital Signs Temp 97.2 F L 06/22/18 07:10 Pulse 68 06/22/18 07:10 Resp 19 06/22/18 08:00 BP 119/80 06/22/18 07:10 Pulse Ox 97 06/22/18 07:10 Intake & Output 06/21/18 06/22/18 06/22/18 18:59 06:59 18:59 Intake Total 1500 3830 Balance 1500 3830 Intake: Intake, IV Titration 3350 Amount Sodium Chloride 0.9% 1, 1350 000 ml @ 150 mls/hr IV . Q6H40M [facility] Rx#:[id number] Sodium Chloride 0.9% 1, 1000 000 ml @ 999 mls/hr IV . Q1H1M [facility] Rx#:[id number] Sodium Chloride 0.9% 1, 1000 000 ml @ 999 mls/hr IV . Q1H1M [facility] Rx#:[id number] Oral 1500 480 Other: Voiding Method Toilet Toilet Toilet # Voids 2 - Labs CBC & Chem 7: 06/22/18 06:48 06/22/18 06:48 Labs: Abnormal Lab Results - Last 24 Hours (Table) 06/21/18 06/22/18 Range/Units 18:00 06:48 Sodium 133 L (137-145) mmol/L Chloride 111 H (98-107) mmol/L Carbon Dioxide 16 L (22-30) mmol/L BUN 30 H (7-17) mg/dL Creatinine 3.13 H (0.52-1.04) mg/dL Glucose 69 L (74-99) mg/dL Calcium 6.4 L* (8.4-10.2) mg/dL AST 39 H (14-36) U/L Alkaline Phosphatase 35 L (38-126) U/L Total Protein 3.1 L (6.3-8.2) g/dL Albumin 1.4 L (3.5-5.0) g/dL Urine Appearance Turbid H (Clear) Urine Protein 3+ H (Negative) Urine Ketones Trace H (Negative) Urine Blood Moderate H (Negative) Urine RBC 13 H (0-5) /hpf Urine WBC 19 H (0-5) /hpf Ur Squamous Epith Cells 14 H (0-4) /hpf Urine Mucus Rare H (None) /hpf Microbiology - Last 24 Hours (Table) 06/21/18 18:00 Urine Culture - Preliminary Urine,Voided
[2018-06-22] MEDS: HYDROcodone/APAP 5-325MG 1 EACH TAB PO PRN ×2 (12:37→19:47)
[2018-06-22] MEDS: LACTATED RINGERS 1,000 ML IV SCH ×2 (14:29→15:32)
[2018-06-22] MEDS ORDERED: CALCIUM CARBONATE 500 MG CHEWABLE PO PRN (14:57)
[2018-06-22] MEDS ORDERED: ERGOCALCIFEROL 50,000 UNIT CAP PO SCH (15:00)
[2018-06-22 15:55] LABS: Calcium 6.9 mg/dL (8.4-10.2); Potassium 3.9 mmol/L (3.5-5.1)
[2018-06-23] MEDS: HYDROcodone/APAP 5-325MG 1 EACH TAB PO PRN ×4 (01:47→23:26)
[2018-06-23] MEDS: SODIUM CHLORIDE 0.9% 1,000 ML IV SCH ×4 (05:17→23:26)
[2018-06-23] MEDS: ENOXAPARIN 30 MG/0.3 ML SYRINGE SQ SCH (08:17)
[2018-06-23] MEDS ORDERED: FUROSEMIDE 10 MG/ML 4 ML VIAL IV STA (09:43)
--- NOTE | 2018-06-23 09:48 | P.NPCON ---
History of Present Illness - Reason for Consult acute renal failure - History of Present Illness Reason for consultation: Acute kidney injury History of present illness: Patient is a 43-year-old female seen in renal consultation for acute kidney injury. Creatinine was 1.45 on admission and has been worsening over the last few days. It was up to 3.19 as of yesterday. Patient denies any prior history of kidney disease. She presented to the hospital with abdominal pain along with nausea and vomiting going on for 5 days prior to admission. She was noted to have acute cholecystitis and underwent laparoscopic cholecystectomy on June 20. She's currently maintained on normal saline at 150 mL an hour. She admits to generalized edema. She has been voiding. No hematuria or dysuria. Denies chest pain or shortness of breath. Pain is controlled. She is currently on clear liquid diet. She was noted to have 3+ proteinuria on UA. No history of diabetes. Denies use of nonsteroidals. No family history of renal disease. Vital signs are stable. General: The patient appeared well nourished and normally developed. HEENT: Head exam is unremarkable. Neck is without jugular venous distension. LUNGS: Breath sounds decreased. HEART: Rate and Rhythm are regular. First and second heart sounds normal. No murmurs, rubs or gallops. ABDOMEN: Bowel sounds decreased. EXTREMITITES: 2+ edema. Past Medical History Additional Past Medical History / Comment(s): abdominal pain problems since age 14, IBS, HPV History of Any Multi-Drug Resistant Organisms: None Reported Additional Past Surgical History / Comment(s): Leep procedure x 2 Past Psychological History: No Psychological Hx Reported Smoking Status: Former smoker Past Alcohol Use History: Occasional Past Drug Use History: Marijuana Medications and Allergies Home Medications Medication Instructions Recorded Confirmed Type Doxylam/PE/Dm/Acetaminophen/GG 2 cap PO Q6H PRN 06/20/18 06/20/18 History [Mucinex Fast-Max Dy-Nt Cld-Flu] [place] (Unknown Dose) 1 tab PO BID PRN 06/20/18 06/20/18 History Allergies Allergy/AdvReac Type Severity Reaction Status Date / Time No Known Allergies Allergy Verified 06/20/18 14:30 Physical Exam Vitals: Vital Signs Temp Pulse Pulse Resp BP Pulse Ox 06/23/18 07:46 97.5 F L 61 14 121/71 98 06/23/18 00:50 98.1 F 66 16 121/75 98 06/22/18 20:07 97.7 F 61 99 16 121/78 06/22/18 14:17 98.8 F 65 121/82 100 Intake and Output 06/22/18 06/23/18 06/23/18 22:59 06:59 14:59 Intake Total 1050 Balance 1050 Intake: Intake, IV Titration 1050 Amount Sodium Chloride 0.9% 1, 1050 000 ml @ 150 mls/hr IV . Q6H40M [facility] Rx#:[id number] Results - Lab Results Most recent lab results Calcium 6.9 mg/dL (8.4-10.2) L 06/22/18 15:13 06/22/18 06:48 06/22/18 15:13 Assessment and Plan Plan: Assessment: 1. Acute kidney injury secondary to ATN secondary to poor oral intake along with vomiting for several days prior to admission. Unknown baseline creatinine. Creatinine was 1.45 on admission and was up at 3.19 as of yesterday. However need to rule out GN as she has 3+ proteinuria on UA. No history of diabetes. 2. Acute cholecystitis status post laparoscopic cholecystectomy on June 20. 3. Hyponatremia secondary to acute kidney injury. 4. Metabolic acidosis secondary to acute kidney injury. 5. Hypocalcemia secondary to acute kidney injury and hypoalbuminemia. Corrected calcium is in the normal range. 6. Volume overload. This is due to IV fluids and hypoalbuminemia. Also concern for nephrotic syndrome. Plan: Decrease rate of normal saline to 50 mL an hour. Lasix 40 mg IV once today. Quantify proteinuria. Check serologies and urine eosinophils. Check renal ultrasound. Add oral sodium bicarbonate. Continue to monitor renal function and urine output. Thank you for the consultation. I will continue to follow the patient with you during her hospital stay.
[2018-06-23 10:00] LABS: Albumin 1.5 g/dL (3.5-5.0); Calcium 6.8 mg/dL (8.4-10.2); Potassium 3.6 mmol/L (3.5-5.1); Total Bilirubin 0.3 mg/dL (0.2-1.3); Total Protein 3.4 g/dL (6.3-8.2)
[2018-06-23] MEDS: SODIUM BICARBONATE TAB 650 MG TAB PO SCH ×2 (10:11→23:30)
[2018-06-23] MEDS: ONDANSETRON 4 MG/2 ML VIAL IVP PRN (10:11)
--- NOTE | 2018-06-23 10:19 | P.PN ---
Progress Note - Text Progress Note Date: 06/23/18 Patient has less complaints of pain. Her nausea is improved. On exam her vital signs are stable. Abdomen soft. Creatinine 3.26. Nephrology input is noted. Patient creatinine will be observed. Once her renal function improves she'll be discharged home.
--- NOTE | 2018-06-23 10:51 | P.PN ---
Subjective Progress Note Date: 06/22/18 Principal diagnosis: Acute Cholecystitis TRUONG/ATN Patient is a 43-year-old female with a known history of IBS, HPV and has been having abdominal pain problems since is 14, history of marijuana use came to ER with complaints of abdominal pain. Abdominal pain is mainly undergoing right ribs cramping type and radiates to the back. Patient has been having abdominal symptoms for the past several years. Her symptoms got worse during last week. Patient was not able to keep down any food since last Monday. She blacked out when she was in shower yesterday. Did not fall suddenly hit her head. Patient does have nausea associated the pain. No episodes of vomiting this time. Denied fever or chills. No skin discoloration. No chest pain or shortness of breath. No headache. No diarrhea. Patient travels for work she states when she was in [place] went to the emergency department for abdominal pain that was similar. She states was given Bentyl at that time. Patient states she had a colonoscopy as well as an endoscopy performed revealing no abnormalities noted of the Route diverticulitis. Patient states she takes no medications. Patient denies melena hematochezia fever, hematemesis. Patient denies chest pain, dyspnea or dyspnea on exertion lower extremity swelling. CT of abdomen pelvis showed prominent pancreas with periPancreatic inflammatory changes. Correlate for acute pancreatitis. Ascites. Chest x-ray showed no acute cardio pulmonary process Ultrasound of ABDOMEN SHOWED correlate for acute cholecystitis. Correlate for possible medical renal disease. 06/22/18 Pt. is tolerating liquids. smal BM today. cr increased to 3.19 today. had issues with IV line last night. Pt. is getting fluids now. pain improving. Pt does have Urine out put. no c/o CP/SOB. no N/V. Current medications reviewed. Objective - Vital Signs Vital signs: Vital Signs Temp 98.8 F 06/22/18 14:17 Pulse 65 06/22/18 14:17 Resp 19 06/22/18 08:00 BP 121/82 06/22/18 14:17 Pulse Ox 100 06/22/18 14:17 Intake & Output 06/21/18 06/22/18 06/22/18 18:59 06:59 18:59 Intake Total 1500 3830 1050 Balance 1500 3830 1050 Intake: Intake, IV Titration 3350 1050 Amount Sodium Chloride 0.9% 1, 1350 1050 000 ml @ 150 mls/hr IV . Q6H40M [facility] Rx#:[id number] Sodium Chloride 0.9% 1, 1000 000 ml @ 999 mls/hr IV . Q1H1M [facility] Rx#:[id number] Sodium Chloride 0.9% 1, 1000 000 ml @ 999 mls/hr IV . Q1H1M [facility] Rx#:[id number] Oral 1500 480 Other: Voiding Method Toilet Toilet Toilet # Voids 2 - Exam PHYSICAL EXAMINATION: Patient is lying in the bed comfortably, no acute distress, awake alert and oriented.. HEENT: Normocephalic. Neck is supple. Pupils reactive. Nostrils clear. Oral cavity is moist. Ears reveal no drainage. Neck reveals no JVD, carotid bruits, or thyromegaly. CHEST EXAMINATION: Trachea is central. Symmetrical expansion. Lung ayoub clear to auscultation and percussion. CARDIAC: Normal S1, S2 with no gallops. No murmurs ABDOMEN: Soft. Surgical site is bandaged. Bowel sounds present. No organomegaly. No abdominal bruits. Extremities: reveal no edema. No clubbing or cyanosis Neurologically awake, alert, oriented x3 with well-coordinated movements. No focal deficits noted Skin: No rash or skin lesions. Psychiatric: Coperative. Nonsuicidal Musculoskeletal: No joint swelling or deformity. Normal range of motion. - Labs CBC & Chem 7: 06/22/18 06:48 06/23/18 09:18 Labs: Abnormal Lab Results - Last 24 Hours (Table) 06/21/18 06/22/18 06/22/18 Range/Units 18:00 06:48 06:48 Sodium 133 L (137-145) mmol/L Chloride 111 H (98-107) mmol/L Carbon Dioxide 16 L (22-30) mmol/L BUN 30 H (7-17) mg/dL Creatinine 3.13 H (0.52-1.04) mg/dL Glucose 69 L (74-99) mg/dL Calcium 6.4 L* (8.4-10.2) mg/dL AST 39 H (14-36) U/L Alkaline Phosphatase 35 L (38-126) U/L Total Protein 3.1 L (6.3-8.2) g/dL Albumin 1.4 L (3.5-5.0) g/dL Vitamin D 25-Hydroxy 9.0 L (30.0-100.0) ng/mL Urine Appearance Turbid H (Clear) Urine Protein 3+ H (Negative) Urine Ketones Trace H (Negative) Urine Blood Moderate H (Negative) Urine RBC 13 H (0-5) /hpf Urine WBC 19 H (0-5) /hpf Ur Squamous Epith Cells 14 H (0-4) /hpf Urine Mucus Rare H (None) /hpf Microbiology - Last 24 Hours (Table) 06/21/18 18:00 Urine Culture - Preliminary Urine,Voided Assessment and Plan Assessment: Abdominal pain secondary to acute cholecystitis status post laparoscopic cholecystectomy. Postoperative day 1 Acute kidney injury most likely ATN. Hypovolemic hyponatremia Hypocalcemia. with hypoalbuminemia. vitamin D deficiency Hypoalbuminemia/moderate protein calorie malnutrition Abnormal urine analysis. Possible contaminant sample DVT prophylaxis l Plan: Patient be continued on IV hydration. Monitor renal function. Currently tolerating liquid diet. Has not passed flatness. Encourage ambulation and incentive spirometry. Pain medications and bowel regimen. We will continue to follow closely. Further recommendations based on the clinical course. Thank you for your consult. Time with Patient: Greater than 30
--- NOTE | 2018-06-23 14:21 | US ---
EXAMINATION TYPE: US kidneys/renal and bladder DATE OF EXAM: 06/23/2018 COMPARISON: Previous study dated 06/20/2018. CLINICAL HISTORY: truong. TRUONG EXAM MEASUREMENTS: Right Kidney: 13.2 x 4.8 x 5.6 cm Left Kidney: 11.7 x 4.9 x 5.1 cm Right Kidney: Larger in size when compared to recent previous US, otherwise appeared wnl Left Kidney: Appeared wnl, lower pole gassed out Bladder: wnl Bilateral Jets seen: Yes Incidentals right pleural effusion, small amount of ascites Dumas's pouch and lower pelvis Change in size of the right kidney from previous is likely an air in measurement. No focal renal abno rmality is seen. IMPRESSION: NO ACUTE RENAL ABNORMALITY.
--- NOTE | 2018-06-23 23:42 | P.PN ---
Subjective Progress Note Date: 06/23/18 Principal diagnosis: Acute Cholecystitis TRUONG/ATN Patient is a 43-year-old female with a known history of IBS, HPV and has been having abdominal pain problems since is 14, history of marijuana use came to ER with complaints of abdominal pain. Abdominal pain is mainly undergoing right ribs cramping type and radiates to the back. Patient has been having abdominal symptoms for the past several years. Her symptoms got worse during last week. Patient was not able to keep down any food since last Monday. She blacked out when she was in shower yesterday. Did not fall suddenly hit her head. Patient does have nausea associated the pain. No episodes of vomiting this time. Denied fever or chills. No skin discoloration. No chest pain or shortness of breath. No headache. No diarrhea. Patient travels for work she states when she was in [place] went to the emergency department for abdominal pain that was similar. She states was given Bentyl at that time. Patient states she had a colonoscopy as well as an endoscopy performed revealing no abnormalities noted of the Route diverticulitis. Patient states she takes no medications. Patient denies melena hematochezia fever, hematemesis. Patient denies chest pain, dyspnea or dyspnea on exertion lower extremity swelling. CT of abdomen pelvis showed prominent pancreas with periPancreatic inflammatory changes. Correlate for acute pancreatitis. Ascites. Chest x-ray showed no acute cardio pulmonary process Ultrasound of ABDOMEN SHOWED correlate for acute cholecystitis. Correlate for possible medical renal disease. 06/22/18 Pt. is tolerating liquids. smal BM today. cr increased to 3.19 today. had issues with IV line last night. Pt. is getting fluids now. pain improving. Pt does have Urine out put. no c/o CP/SOB. no N/V. 06/23/2018 Patient denied any complaints of worsening abdominal pain. Patient is able to tolerate diet and did have bowel movement. Otherwise there is increased to 3.26. Patient is also having worsening bilateral leg swelling and generalized swelling. IV fluids reduced to 50 mL per hour. Nephrology is following. No fever no chills. Patient does have urine output. Does have some nausea. No vomiting. Ultrasound of the renal showed no acute abnormality. Current medications reviewed. Objective - Vital Signs Vital signs: Vital Signs Temp 97.5 F L 06/23/18 07:46 Pulse 61 06/23/18 07:46 Resp 14 06/23/18 07:46 BP 121/71 06/23/18 07:46 Pulse Ox 98 06/23/18 07:46 Intake & Output 06/22/18 06/23/18 06/23/18 18:59 06:59 18:59 Intake Total 1050 1050 Balance 1050 1050 Intake: Intake, IV Titration 1050 1050 Amount Sodium Chloride 0.9% 1, 1050 1050 000 ml @ 150 mls/hr IV . Q6H40M [facility] Rx#:[id number] Other: Voiding Method Toilet - Exam PHYSICAL EXAMINATION: Patient is lying in the bed comfortably, no acute distress, awake alert and oriented.. HEENT: Normocephalic. Neck is supple. Pupils reactive. Nostrils clear. Oral cavity is moist. Ears reveal no drainage. Neck reveals no JVD, carotid bruits, or thyromegaly. CHEST EXAMINATION: Trachea is central. Symmetrical expansion. Bibasilar dim inished air entry. Lung ayoub clear to auscultation and percussion. CARDIAC: Normal S1, S2 with no gallops. No murmurs ABDOMEN: Soft. Surgical site is bandaged. Bowel sounds present. No organome brenden. No abdominal bruits. Extremities: Bilateral lower extremity 3+ edema. No clubbing or cyanosis Neurologically awake, alert, oriented x3 with well-coordinated movements. No focal deficits noted Skin: No rash or skin lesions. Psychiatric: Coperative. Nonsuicidal Musculoskeletal: No joint swelling or deformity. Normal range of motion. - Labs CBC & Chem 7: 06/22/18 06:48 06/23/18 09:18 Labs: Abnormal Lab Results - Last 24 Hours (Table) 06/22/18 06/22/18 06/23/18 Range/Units 06:48 15:13 09:18 Sodium 133 L 131 L (137-145) mmol/L Chloride 112 H 111 H (98-107) mmol/L Carbon Dioxide 17 L 17 L (22-30) mmol/L BUN 30 H 29 H (7-17) mg/dL Creatinine 3.19 H 3.26 H (0.52-1.04) mg/dL Glucose 70 L (74-99) mg/dL Calcium 6.9 L 6.8 L (8.4-10.2) mg/dL AST 42 H (14-36) U/L Total Protein 3.4 L (6.3-8.2) g/dL Albumin 1.5 L (3.5-5.0) g/dL Vitamin D 25-Hydroxy 9.0 L (30.0-100.0) ng/mL Microbiology - Last 24 Hours (Table) 06/21/18 18:00 Urine Culture - Final Urine,Voided Assessment and Plan Assessment: Abdominal pain secondary to acute cholecystitis status post laparoscopic cholecystectomy. Acute kidney injury secondary to ATN. Hypovolemic hyponatremia Hypocalcemia. with hypoalbuminemia. Normal calcium level with correction. vitamin D deficiency Hypoalbuminemia/moderate protein calorie malnutrition Abnormal urine analysis. Possible contaminant sample DVT prophylaxis l Plan: Patient be continued on IV hydration gently. Monitor renal function. Currently tolerating liquid diet. Has not passed flatness. Encourage ambulation and incentive spirometry. Pain medications and bowel regimen. We will continue to follow closely. Further recommendations based on the clinical course. Thank you for your consult. Time with Patient: Greater than 30
[2018-06-24] MEDS: SODIUM BICARBONATE TAB 650 MG TAB PO SCH ×2 (09:49→22:41)
[2018-06-24] MEDS: HYDROcodone/APAP 5-325MG 1 EACH TAB PO PRN ×3 (09:49→22:41)
[2018-06-24] MEDS: ENOXAPARIN 30 MG/0.3 ML SYRINGE SQ SCH (09:50)
[2018-06-24 09:57] LABS: Calcium 7.1 mg/dL (8.4-10.2); Potassium 3.7 mmol/L (3.5-5.1)
[2018-06-24] MEDS: ONDANSETRON 4 MG/2 ML VIAL IVP PRN (09:58)
--- NOTE | 2018-06-24 10:03 | P.PN ---
Subjective Patient is seen in follow-up for acute kidney injury. Creatinine was 1.45 on admission and is up to 3.35 today. Patient denies any prior history of kidney disease. She underwent laparoscopic cholecystectomy on June 20. Still quite edematous. Albumin level is very low at 1.5. She did have good urine output after Lasix yesterday. Still on liquid diet. No vomiting. She was noted to have nephrotic range proteinuria. Serologies are pending. Vital signs are stable. General: The patient appeared well nourished and normally developed. HEENT: Head exam is unremarkable. Neck is without jugular venous distension. LUNGS: Lungs are clear to auscultation and percussion. Breath sounds decreased. HEART: Rate and Rhythm are regular. First and second heart sounds normal. No murmurs, rubs or gallops. ABDOMEN: Abdominal exam reveals normal bowel sounds. Non-tender and non- distended. No evidence of peritonitis. EXTREMITITES: 2+ edema. Objective - Vital Signs Vital signs: Vital Signs Temp 98.1 F 06/24/18 07:00 Pulse 79 06/24/18 07:00 Resp 12 06/24/18 07:00 BP 119/76 06/24/18 07:00 Pulse Ox 97 06/24/18 07:00 Intake & Output 06/23/18 06/24/18 06/24/18 18:59 06:59 18:59 Intake Total 400 150 Balance 400 150 Intake: Intake, IV Titration 400 150 Amount Sodium Chloride 0.9% 1, 400 150 000 ml @ 50 mls/hr IV . Q20H [facility] Rx#:[id number] Other: # Voids 3 - Labs CBC & Chem 7: 06/22/18 06:48 06/24/18 08:38 Labs: Abnormal Lab Results - Last 24 Hours (Table) 06/23/18 06/23/18 06/24/18 Range/Units 09:18 Unknown 08:38 Sodium 131 L 135 L (137-145) mmol/L Chloride 111 H 113 H (98-107) mmol/L Carbon Dioxide 17 L 18 L (22-30) mmol/L BUN 29 H 29 H (7-17) mg/dL Creatinine 3.26 H 3.35 H (0.52-1.04) mg/dL Calcium 6.8 L 7.1 L (8.4-10.2) mg/dL AST 42 H (14-36) U/L Total Protein 3.4 L (6.3-8.2) g/dL Albumin 1.5 L (3.5-5.0) g/dL U Random Total Protein 354 H (<12) mg/dL Assessment and Plan Plan: Assessment: 1. Acute kidney injury secondary to ATN secondary to poor oral intake along with vomiting for several days prior to admission. Unknown baseline creatinine. Creatinine was 1.45 on admission and is up to 3.35 today. However need to rule out GN as she has nephrotic range proteinuria. No history of diabetes. Urine eosinophils negative. No evidence of hydronephrosis noted on renal ultrasound. 2. Acute cholecystitis status post laparoscopic cholecystectomy on June 20. 3. Hyponatremia secondary to acute kidney injury. Better. 4. Metabolic acidosis secondary to acute kidney injury. Maintained on oral sodium bicarbonate. 5. Hypocalcemia secondary to acute kidney injury and hypoalbuminemia. Corrected calcium is in the normal range. 6. Volume overload. This is due to IV fluids and hypoalbuminemia. Also concern for nephrotic syndrome. Plan: Start Lasix 40 mg IV once daily. Follow-up serologies. I discussed with the patient the potential need for kidney biopsy for definitive diagnosis pending serologic workup.
--- NOTE | 2018-06-24 11:17 | P.PN ---
Progress Note - Text Progress Note Date: 06/24/18 The patient feels better. She is currently being worked up by the nephrology service for nephrotic syndrome. On exam her vital signs are stable. Her abdomen soft. Patient will have her diet advanced to regular diet. She'll be discharged home once cleared by nephrology.
[2018-06-24] MEDS: FUROSEMIDE 10 MG/ML 4 ML VIAL IV SCH (12:16)
[2018-06-24] MEDS: SODIUM CHLORIDE 0.9% 1,000 ML IV SCH (17:42)
--- NOTE | 2018-06-24 23:40 | P.PN ---
Subjective Progress Note Date: 06/24/18 Principal diagnosis: Acute Cholecystitis TRUONG/ATN Patient is a 43-year-old female with a known history of IBS, HPV and has been having abdominal pain problems since is 14, history of marijuana use came to ER with complaints of abdominal pain. Abdominal pain is mainly undergoing right ribs cramping type and radiates to the back. Patient has been having abdominal symptoms for the past several years. Her symptoms got worse during last week. Patient was not able to keep down any food since last Monday. She blacked out when she was in shower yesterday. Did not fall suddenly hit her head. Patient does have nausea associated the pain. No episodes of vomiting this time. Denied fever or chills. No skin discoloration. No chest pain or shortness of breath. No headache. No diarrhea. Patient travels for work she states when she was in [place] went to the emergency department for abdominal pain that was similar. She states was given Bentyl at that time. Patient states she had a colonoscopy as well as an endoscopy performed revealing no abnormalities noted of the Route diverticulitis. Patient states she takes no medications. Patient denies melena hematochezia fever, hematemesis. Patient denies chest pain, dyspnea or dyspnea on exertion lower extremity swelling. CT of abdomen pelvis showed prominent pancreas with periPancreatic inflammatory changes. Correlate for acute pancreatitis. Ascites. Chest x-ray showed no acute cardio pulmonary process Ultrasound of ABDOMEN SHOWED correlate for acute cholecystitis. Correlate for possible medical renal disease. 06/22/18 Pt. is tolerating liquids. smal BM today. cr increased to 3.19 today. had issues with IV line last night. Pt. is getting fluids now. pain improving. Pt does have Urine out put. no c/o CP/SOB. no N/V. 06/23/2018 Patient denied any complaints of worsening abdominal pain. Patient is able to tolerate diet and did have bowel movement. Otherwise there is increased to 3.26. Patient is also having worsening bilateral leg swelling and generalized swelling. IV fluids reduced to 50 mL per hour. Nephrology is following. No fever no chills. Patient does have urine output. Does have some nausea. No vomiting. Ultrasound of the renal showed no acute abnormality. 06/24/2018 Patient denied any complaints of abdominal pain. Tolerating oral diet is advanced to regular diet. Patient says that she is making plenty of urine. Creatinine level in up to 3.35 today. Still having bilateral lower extremities swelling and generalized swelling of the lower body. Urine protein level is elevated. Nephrology is following. May consider per renal biopsy. Follow up closely. Continue gentle hydration. Serological workup for acute kidney injury was ordered. Started on IV Lasix. Current medications reviewed. Objective - Vital Signs Vital signs: Vital Signs Temp 97.8 F 06/24/18 14:22 Pulse 55 L 06/24/18 14:22 Resp 15 06/24/18 16:00 BP 132/77 06/24/18 14:22 Pulse Ox 98 06/24/18 14:22 Intake & Output 06/24/18 06/24/18 06/25/18 06:59 18:59 06:59 Intake Total 150 950 Balance 150 950 Intake: Intake, IV Titration 150 350 Amount Sodium Chloride 0.9% 1, 150 350 000 ml @ 50 mls/hr IV . Q20H [facility] Rx#:[id number] Oral 600 Other: Voiding Method Toilet # Voids 2 - Exam PHYSICAL EXAMINATION: Patient is lying in the bed comfortably, no acute distress, awake alert and oriented.. HEENT: Normocephalic. Neck is supple. Pupils reactive. Nostrils clear. Oral cavity is moist. Ears reveal no drainage. Neck reveals no JVD, carotid bruits, or thyromegaly. CHEST EXAMINATION: Trachea is central. Symmetrical expansion. Bibasilar diminished air entry. Lung ayoub clear to auscultation and percussion. CARDIAC: Normal S1, S2 with no gallops. No murmurs ABDOMEN: Soft. Surgical site is bandaged. Bowel sounds present. No organomegaly. No abdominal bruits. Extremities: Bilateral lower extremity 3+ edema. No clubbing or cyanosis Neurologically awake, alert, oriented x3 with well-coordinated movements. No focal deficits noted Skin: No rash or skin lesions. Psychiatric: Coperative. Nonsuicidal Musculoskeletal: No joint swelling or deformity. Normal range of motion. - Labs CBC & Chem 7: 06/22/18 06:48 06/24/18 08:38 Labs: Abnormal Lab Results - Last 24 Hours (Table) 06/24/18 Range/Units 08:38 Sodium 135 L (137-145) mmol/L Chloride 113 H (98-107) mmol/L Carbon Dioxide 18 L (22-30) mmol/L BUN 29 H (7-17) mg/dL Creatinine 3.35 H (0.52-1.04) mg/dL Calcium 7.1 L (8.4-10.2) mg/dL Assessment and Plan Assessment: Abdominal pain secondary to acute cholecystitis status post laparoscopic cholecystectomy. Acute kidney injury secondary to ATN. Nephrotic range proteinuria. Rule out glomerulonephritis Hypovolemic hyponatremia Hypocalcemia. with hypoalbuminemia. Normal calcium level with correction. vitamin D deficiency Hypoalbuminemia/moderate protein calorie malnutrition Abnormal urine analysis. Possible contaminant sample DVT prophylaxis l Plan: Patient be continued on IV hydration gently. Monitor renal function. Patient is tolerating oral diet and is advanced. Follow-up renal function.. Encourage ambulation and incentive spirometry. Pain medications and bowel regimen. We will continue to follow closely. Further recommendations based on the clinical course. Time with Patient: Greater than 30
[2018-06-25 08:06] LABS: Basophils % (A) 0 %; Eosinophils # (A) 0.4 k/uL (0-0.7); Eosinophils % (A) 5 %; HCT 43.6 % (34.0-46.0); HGB 14.4 gm/dL (11.4-16.0); Lymphocytes # (A) 2.7 k/uL (1.0-4.8); Lymphocytes % (A) 37 %; MCHC 33.1 g/dL (31.0-37.0); MCV 90.7 fL (80.0-100.0); Monocytes # (A) 0.5 k/uL (0-1.0); Monocytes % (A) 6 %; Neutrophils # (A) 3.5 k/uL (1.3-7.7); Neutrophils % (A) 49 %; Platelet Count 424 k/uL (150-450); RDW 12.9 % (11.5-15.5); WBC 7.2 k/uL (3.8-10.6)
[2018-06-25 08:17] LABS: Calcium 7.2 mg/dL (8.4-10.2); Magnesium 2.1 mg/dL (1.6-2.3); Potassium 3.5 mmol/L (3.5-5.1)
[2018-06-25] MEDS: FUROSEMIDE 10 MG/ML 4 ML VIAL IV SCH (08:47)
[2018-06-25] MEDS: SODIUM BICARBONATE TAB 650 MG TAB PO SCH ×2 (08:48→20:20)
[2018-06-25] MEDS: ENOXAPARIN 30 MG/0.3 ML SYRINGE SQ SCH (08:48)
[2018-06-25] MEDS: HYDROcodone/APAP 5-325MG 1 EACH TAB PO PRN ×2 (08:50→20:21)
[2018-06-25 10:09] LABS: Anti-DNA, DS unit <1.0 IU/mL; DNA Double-Stranded NEGATIVE (NEGATIVE)
[2018-06-25] MEDS: ONDANSETRON 4 MG/2 ML VIAL IVP PRN (11:02)
[2018-06-25 11:07] LABS: Hepatitis A Antibody IgM Non-Reactive (Non-Reactive); Hepatitis B Core IgM Non-Reactive (Non-Reactive)
[2018-06-25 12:07] LABS: Protein, Total 3.6 g/dL (6.2-8.2)
--- NOTE | 2018-06-25 12:34 | P.PN ---
Subjective Progress Note Date: 06/25/18 CHIEF COMPLAINT: Abdominal pain HISTORY OF PRESENT ILLNESS: 43-year-old female who underwent laparoscopic cholecystectomy secondary to acute cholecystitis. Patient examined at the bedside. Patient reports generalized abdominal pain. She reports loose stools this morning. Tolerating diet, although she did not eat breakfast this morning. Creatinine 2.93 today, down from 3.35. PHYSICAL EXAM: VITAL SIGNS: Reviewed. GENERAL: Well-developed in no acute distress. HEENT: No sclera icterus. Extraocular movements grossly intact. Moist buccal mucosa. Head is atraumatic, normocephalic. ABDOMEN: Soft. Nondistended. Positive bowel sounds. Surgical incision sites clean dry and intact without drainage. NEUROLOGIC: Alert and oriented. Cranial nerves II through XII grossly intact. ASSESSMENT: 1. Acute cholecystitis, status post laparoscopic cholecystectomy 2. Chronic abdominal pain PLAN: 1. Continue current diet 2. Continue IV fluids 3. Activity as tolerated 4. Incentive spirometry 5. Patient may be discharged when cleared by nephrology Nurse practitioner note has been reviewed by physician. Signing provider agrees with the documented findings, assessment, and plan of care. Objective - Vital Signs Vital signs: Vital Signs Temp 97.5 F L 06/25/18 07:44 Pulse 63 06/25/18 07:44 Resp 15 06/25/18 07:44 BP 122/75 06/25/18 07:44 Pulse Ox 100 06/25/18 07:44 Intake & Output 06/24/18 06/25/18 06/25/18 18:59 06:59 18:59 Intake Total 950 280 Balance 950 280 Intake: Intake, IV Titration 350 Amount Sodium Chloride 0.9% 1, 350 000 ml @ 50 mls/hr IV . Q20H [facility] Rx#:[id number] Oral 600 280 Other: Voiding Method Toilet # Voids 2 - Labs CBC & Chem 7: 06/25/18 07:45 06/25/18 07:45 Labs: Abnormal Lab Results - Last 24 Hours (Table) 06/24/18 06/25/18 Range/Units 08:38 07:45 Chloride 114 H (98-107) mmol/L Carbon Dioxide 19 L (22-30) mmol/L BUN 27 H (7-17) mg/dL Creatinine 2.93 H (0.52-1.04) mg/dL Glucose 73 L (74-99) mg/dL Calcium 7.2 L (8.4-10.2) mg/dL Total Protein (PEP) 3.6 L (6.2-8.2) g/dL
--- NOTE | 2018-06-25 13:07 | PN ---
PROGRESS NOTE Patient is seen for followup for acute kidney injury with nephrotic range proteinuria. All serologies are currently negative. However, given the degree of proteinuria, patient should still have a kidney biopsy done. She can have the kidney biopsy done as outpatient as renal function is not worsening. Currently, patient is maintained on IV fluids, which I will discontinue. We can continue with the once a day dosing of Lasix. PHYSICAL EXAMINATION: On examination this morning, blood pressure was 122/75, heart rate 63 per minute. Patient is afebrile. EXAMINATION OF THE HEART: S1, S2. EXAMINATION OF THE LUNGS: Bilateral breath sounds are heard. Abdomen is soft, nontender. Examination of the lower extremities shows 2+ edema bilaterally. PIECER UP exam is grossly intact. LABS: Labs show sodium 137, potassium 3.5, BUN 27, serum creatinine 2.93, hemoglobin 14.4 g/dL. ASSESSMENT: 1. Acute kidney injury most likely acute tubular necrosis on top of underlying GN given the nephrotic range proteinuria. So far, all serologies are negative. The patient needs a kidney biopsy. However, this could be done as outpatient as well. I will discontinue the IV fluids and continue with the once a day dosing of Lasix. 2. Acute cholecystitis, status post laparoscopic cholecystectomy. 3. Hyponatremia, currently improved. Etiology was renal failure. 4. Volume overload associated with nephrotic range proteinuria and underlying nephrotic syndrome. PLAN: Continue with Lasix. Discontinue IV fluids. The patient needs a kidney biopsy which could be done as outpatient as well. She will need followup in 1 to 2 weeks. MMODL / IJN: [id number] /
[2018-06-25] MEDS ORDERED: FUROSEMIDE 10 MG/ML 4 ML VIAL IV ONE (21:15)
[2018-06-26 09:51] LABS: Calcium 7.3 mg/dL (8.4-10.2)
[2018-06-26 09:55] LABS: Albumin 1.54 g/dL (3.80-4.90); Gamma Globulin 0.33 g/dL (0.70-1.50)
[2018-06-26] MEDS: FUROSEMIDE 10 MG/ML 4 ML VIAL IV SCH (10:11)
[2018-06-26] MEDS: SODIUM BICARBONATE TAB 650 MG TAB PO SCH ×2 (10:11→20:22)
[2018-06-26] MEDS: ENOXAPARIN 30 MG/0.3 ML SYRINGE SQ SCH (10:12)
[2018-06-26] MEDS: HYDROcodone/APAP 5-325MG 1 EACH TAB PO PRN ×2 (10:12→17:30)
[2018-06-26 10:19] LABS: Potassium 3.9 mmol/L (3.5-5.1)
[2018-06-26 10:25] LABS: Basophils % (A) 1 %; Eosinophils # (A) 0.4 k/uL (0-0.7); Eosinophils % (A) 6 %; HCT 39.3 % (34.0-46.0); Lymphocytes # (A) 2.5 k/uL (1.0-4.8); Lymphocytes % (A) 35 %; MCH 30.4 pg (25.0-35.0); MCHC 33.1 g/dL (31.0-37.0); MCV 91.7 fL (80.0-100.0); Mean Platelet Volume 7.8; Monocytes # (A) 0.6 k/uL (0-1.0); Monocytes % (A) 8 %; Neutrophils # (A) 3.4 k/uL (1.3-7.7); Neutrophils % (A) 48 %; Platelet Count 461 k/uL (150-450); RBC 4.29 m/uL (3.80-5.40); RDW 13.4 % (11.5-15.5); WBC 7.1 k/uL (3.8-10.6)
[2018-06-26 13:51] LABS: C-ANCA <1:20 Titer (<1:20); P-ANCA <1:20 Titer (<1:20)
--- NOTE | 2018-06-26 14:16 | P.PN ---
Subjective Progress Note Date: 06/26/18 CHIEF COMPLAINT: Abdominal pain HISTORY OF PRESENT ILLNESS: 43-year-old female who underwent laparoscopic cholecystectomy secondary to acute cholecystitis. Patient examined at the bedside. Patient reports improvement in abdominal pain. Tolerating diet. Patient complains of generalized edema. Creatinine is 2.53 today, down from 2.93. Nephrology is following. PHYSICAL EXAM: VITAL SIGNS: Reviewed. GENERAL: Well-developed in no acute distress. HEENT: No sclera icterus. Extraocular movements grossly intact. Moist buccal mucosa. Head is atraumatic, normocephalic. ABDOMEN: Soft. Nondistended. Positive bowel sounds. Surgical incision sites clean dry and intact without drainage. NEUROLOGIC: Alert and oriented. Cranial nerves II through XII grossly intact. ASSESSMENT: 1. Acute cholecystitis, status post laparoscopic cholecystectomy 2. Chronic abdominal pain PLAN: 1. Continue current diet 2. Activity as tolerated 3. Incentive spirometry 4. Patient may be discharged when cleared by nephrology Nurse practitioner note has been reviewed by physician. Signing provider agrees with the documented findings, assessment, and plan of care. Objective - Vital Signs Vital signs: Vital Signs Temp 97.7 F 06/26/18 07:00 Pulse 65 06/26/18 07:00 Resp 14 06/26/18 07:00 BP 113/71 06/26/18 07:00 Pulse Ox 97 06/26/18 07:00 Intake & Output 06/25/18 06/26/18 06/26/18 18:59 06:59 18:59 Intake Total 480 240 296 Balance 480 240 296 Intake: Oral 280 240 296 Other 200 Other: # Voids 3 - Labs CBC & Chem 7: 06/26/18 09:12 06/26/18 09:12 Labs: Abnormal Lab Results - Last 24 Hours (Table) 06/24/18 06/26/18 06/26/18 Range/Units 08:38 09:12 09:12 Plt Count 461 H (150-450) k/uL Chloride 114 H (98-107) mmol/L Carbon Dioxide 20 L (22-30) mmol/L BUN 24 H (7-17) mg/dL Creatinine 2.53 H (0.52-1.04) mg/dL Calcium 7.3 L (8.4-10.2) mg/dL Albumin (PEP) 1.54 L (3.80-4.90) g/dL Dactx-1-Tmwuatfdp 1.07 H (0.60-1.00) g/dL Beta Globulins 0.44 L (0.60-1.30) g/dL Gamma Globulins 0.33 L (0.70-1.50) g/dL
[2018-06-26] MEDS: FAMOTIDINE 20 MG/2 ML VIAL IV SCH (17:31)
--- NOTE | 2018-06-26 23:53 | PN ---
PROGRESS NOTE HISTORY: 1. The patient is seen for followup for acute kidney injury. The patient continues to have edema. She was given Lasix yesterday. IV fluids were also stopped. The patient states her swelling is slightly better. She denies any significant shortness of breath. Abdominal pain is slowly improving after laparoscopic cholecystectomy. Oral intake is improved. Serum creatinine is also heading in the right direction with creatinine down to 2.53 from peak of 3.35. 2. Nephrotic range proteinuria with underlying . If the patient needs a kidney biopsy. Possible membranous nephropathy. All serologies are currently negative. I will check with radiology if the biopsy can be done during this admission. If it cannot be done for the next 2 to 3 days, then we can plan it as outpatient. The patient is advised to continue to avoid nephrotoxic medications including NSAIDs. 3. Bacteriuria with urine culture currently negative. 4. Hyponatremia, currently improved. PLAN: Check with Radiology if the kidney biopsy can be done in the next 1 or 2 days as inpatient, otherwise, we will plan for outpatient. Continue with IV Lasix and sodium bicarb for now. MMODL / IJN: [id number] /
--- NOTE | 2018-06-27 01:03 | P.PN ---
Subjective Progress Note Date: 06/25/18 Principal diagnosis: Acute Cholecystitis TRUONG/ATN Patient is a 43-year-old female with a known history of IBS, HPV and has been having abdominal pain problems since is 14, history of marijuana use came to ER with complaints of abdominal pain. Abdominal pain is mainly undergoing right ribs cramping type and radiates to the back. Patient has been having abdominal symptoms for the past several years. Her symptoms got worse during last week. Patient was not able to keep down any food since last Monday. She blacked out when she was in shower yesterday. Did not fall suddenly hit her head. Patient does have nausea associated the pain. No episodes of vomiting this time. Denied fever or chills. No skin discoloration. No chest pain or shortness of breath. No headache. No diarrhea. Patient travels for work she states when she was in [place] went to the emergency department for abdominal pain that was similar. She states was given Bentyl at that time. Patient states she had a colonoscopy as well as an endoscopy performed revealing no abnormalities noted of the Route diverticulitis. Patient states she takes no medications. Patient denies melena hematochezia fever, hematemesis. Patient denies chest pain, dyspnea or dyspnea on exertion lower extremity swelling. CT of abdomen pelvis showed prominent pancreas with periPancreatic inflammatory changes. Correlate for acute pancreatitis. Ascites. Chest x-ray showed no acute cardio pulmonary process Ultrasound of ABDOMEN SHOWED correlate for acute cholecystitis. Correlate for possible medical renal disease. 06/22/18 Pt. is tolerating liquids. smal BM today. cr increased to 3.19 today. had issues with IV line last night. Pt. is getting fluids now. pain improving. Pt does have Urine out put. no c/o CP/SOB. no N/V. 06/23/2018 Patient denied any complaints of worsening abdominal pain. Patient is able to tolerate diet and did have bowel movement. Otherwise there is increased to 3.26. Patient is also having worsening bilateral leg swelling and generalized swelling. IV fluids reduced to 50 mL per hour. Nephrology is following. No fever no chills. Patient does have urine output. Does have some nausea. No vomiting. Ultrasound of the renal showed no acute abnormality. 06/24/2018 Patient denied any complaints of abdominal pain. Tolerating oral diet is advanced to regular diet. Patient says that she is making plenty of urine. Creatinine level in up to 3.35 today. Still having bilateral lower extremities swelling and generalized swelling of the lower body. Urine protein level is elevated. Nephrology is following. May consider per renal biopsy. Follow up closely. Continue gentle hydration. Serological workup for acute kidney injury was ordered. Started on IV Lasix. 06/25/2018 Patient says that her abdominal pain is better. Still having pain in the epigastric region. Tolerating oral diet. Patient did have a bowel movement as well. Renal function slightly improved with creatinine level II.93 today. Nephrology is following. Serological workup for glomerulonephritis has been negative so far. Patient is being continued on IV Lasix. Slight improvement in leg swelling. No fever no chills. No other acute overnight issues. Discussed with the family at bedside in detail. Current medications reviewed. Objective - Vital Signs Vital signs: Vital Signs Temp 98.1 F 06/25/18 19:02 Pulse 68 06/25/18 19:02 Resp 15 06/25/18 19:02 BP 132/97 06/25/18 19:02 Pulse Ox 99 06/25/18 19:02 Intake & Output 06/25/18 06/25/18 06/26/18 06:59 18:59 06:59 Intake Total 280 480 240 Balance 280 480 240 Intake: Oral 280 280 240 Other 200 - Exam PHYSICAL EXAMINATION: Patient is lying in the bed comfortably, no acute distress, awake alert and oriented.. HEENT: Normocephalic. Neck is supple. Pupils reactive. Nostrils clear. Oral cav ity is moist. Ears reveal no drainage. Neck reveals no JVD, carotid bruits, or thyromegaly. CHEST EXAMINATION: Trachea is central. Symmetrical expansion. Bibasilar diminished air entry. Lung ayoub clear to auscultation and percussion. CARDIAC: Normal S1, S2 with no gallops. No murmurs ABDOMEN: Soft. Surgical site is bandaged. Bowel sounds present. No organomegaly. No abdominal bruits. Extremities: Bilateral lower extremity 3+ edema. No clubbing or cyanosis Neurologically awake, alert, oriented x3 with well-coordinated movements. No focal deficits noted Skin: No rash or skin lesions. Psychiatric: Coperative. Nonsuicidal Musculoskeletal: No joint swelling or deformity. Normal range of motion. - Labs CBC & Chem 7: 04/09/19 09:12 06/26/18 09:12 Labs: Abnormal Lab Results - Last 24 Hours (Table) 06/24/18 06/25/18 Range/Units 08:38 07:45 Chloride 114 H (98-107) mmol/L Carbon Dioxide 19 L (22-30) mmol/L BUN 27 H (7-17) mg/dL Creatinine 2.93 H (0.52-1.04) mg/dL Glucose 73 L (74-99) mg/dL Calcium 7.2 L (8.4-10.2) mg/dL Total Protein (PEP) 3.6 L (6.2-8.2) g/dL Assessment and Plan Assessment: Abdominal pain secondary to acute cholecystitis status post laparoscopic cholecystectomy. Acute kidney injury secondary to ATN. Nephrotic range proteinuria. Rule out glomerulonephritis Hypovolemic hyponatremia Hypocalcemia. with hypoalbuminemia. Normal calcium level with correction. vitamin D deficiency Hypoalbuminemia/moderate protein calorie malnutrition Abnormal urine analysis. Possible contaminant sample DVT prophylaxis l Plan: Patient be continued on IV Lasix daily. Monitor renal function. Patient is t olerating oral diet and is advanced. Nephrology is following. Encourage ambulation and incentive spirometry. Pain medications and bowel regimen. We will continue to follow closely. Further recommendations based on the clinical course. Time with Patient: Greater than 30
--- NOTE | 2018-06-27 01:07 | P.PN ---
Subjective Progress Note Date: 06/26/18 Principal diagnosis: Acute Cholecystitis TRUONG/ATN Patient is a 43-year-old female with a known history of IBS, HPV and has been having abdominal pain problems since is 14, history of marijuana use came to ER with complaints of abdominal pain. Abdominal pain is mainly undergoing right ribs cramping type and radiates to the back. Patient has been having abdominal symptoms for the past several years. Her symptoms got worse during last week. Patient was not able to keep down any food since last Monday. She blacked out when she was in shower yesterday. Did not fall suddenly hit her head. Patient does have nausea associated the pain. No episodes of vomiting this time. Denied fever or chills. No skin discoloration. No chest pain or shortness of breath. No headache. No diarrhea. Patient travels for work she states when she was in [place] went to the emergency department for abdominal pain that was similar. She states was given Bentyl at that time. Patient states she had a colonoscopy as well as an endoscopy performed revealing no abnormalities noted of the Route diverticulitis. Patient states she takes no medications. Patient denies melena hematochezia fever, hematemesis. Patient denies chest pain, dyspnea or dyspnea on exertion lower extremity swelling. CT of abdomen pelvis showed prominent pancreas with periPancreatic inflammatory changes. Correlate for acute pancreatitis. Ascites. Chest x-ray showed no acute cardio pulmonary process Ultrasound of ABDOMEN SHOWED correlate for acute cholecystitis. Correlate for possible medical renal disease. 06/22/18 Pt. is tolerating liquids. smal BM today. cr increased to 3.19 today. had issues with IV line last night. Pt. is getting fluids now. pain improving. Pt does have Urine out put. no c/o CP/SOB. no N/V. 06/23/2018 Patient denied any complaints of worsening abdominal pain. Patient is able to tolerate diet and did have bowel movement. Otherwise there is increased to 3.26. Patient is also having worsening bilateral leg swelling and generalized swelling. IV fluids reduced to 50 mL per hour. Nephrology is following. No fever no chills. Patient does have urine output. Does have some nausea. No vomiting. Ultrasound of the renal showed no acute abnormality. 06/24/2018 Patient denied any complaints of abdominal pain. Tolerating oral diet is advanced to regular diet. Patient says that she is making plenty of urine. Creatinine level in up to 3.35 today. Still having bilateral lower extremities swelling and generalized swelling of the lower body. Urine protein level is elevated. Nephrology is following. May consider per renal biopsy. Follow up closely. Continue gentle hydration. Serological workup for acute kidney injury was ordered. Started on IV Lasix. 06/25/2018 Patient says that her abdominal pain is better. Still having pain in the epigastric region. Tolerating oral diet. Patient did have a bowel movement as well. Renal function slightly improved with creatinine level II.93 today. Nephrology is following. Serological workup for glomerulonephritis has been negative so far. Patient is being continued on IV Lasix. Slight improvement in leg swelling. No fever no chills. No other acute overnight issues. Discussed with the family at bedside in detail. 06/26/2018 Patient is tolerating oral diet. Complains of epigastric abdominal pain but improving. No fever chills. No nausea or vomiting. Renal function is improving with creatinine level II.53 today. Serological workup is negative. Considering renal biopsy to rule out possible membranous glomerulonephritis. Continued on IV Lasix and oral bicarb. Leg swelling is better. Nephrology is wendy nick. No headache or dizziness or lightheadedness. Anticipate discharge in next 24-48 hours once cleared by nephrology. Current medications reviewed. Objective - Vital Signs Vital signs: Vital Signs Temp 98.3 F 06/26/18 19:09 Pulse 63 06/26/18 19:09 Resp 15 06/26/18 19:09 BP 129/83 06/26/18 19:09 Pulse Ox 99 06/26/18 19:09 Intake & Output 06/26/18 06/26/18 06/27/18 06:59 18:59 06:59 Intake Total 240 296 250 Balance 240 296 250 Intake: Oral 240 296 250 Other: # Voids 3 2 - Exam PHYSICAL EXAMINATION: Patient is lying in the bed comfortably, no acute distress, awake alert and oriented.. HEENT: Normocephalic. Neck is supple. Pupils reactive. Nostrils clear. Oral cavity is moist. Ears reveal no drainage. Neck reveals no JVD, carotid bruits, or thyromegaly. CHEST EXAMINATION: Trachea is central. Symmetrical expansion. Bibasilar diminished air entry. Lung ayoub clear to auscultation and percussion. CARDIAC: Normal S1, S2 with no gallops. No murmurs ABDOMEN: Soft. Surgical site is bandaged. Bowel sounds present. No orga nomegaly. No abdominal bruits. Extremities: Bilateral lower extremity 3+ edema. No clubbing or cyanosis Neurologically awake, alert, oriented x3 with well-coordinated movements. No focal deficits noted Skin: No rash or skin lesions. Psychiatric: Coperative. Nonsuicidal Musculoskeletal: No joint swelling or deformity. Normal range of motion. - Labs CBC & Chem 7: 06/26/18 09:12 06/26/18 09:12 Labs: Abnormal Lab Results - Last 24 Hours (Table) 06/24/18 06/26/18 06/26/18 Range/Units 08:38 09:12 09:12 Plt Count 461 H (150-450) k/uL Chloride 114 H (98-107) mmol/L Carbon Dioxide 20 L (22-30) mmol/L BUN 24 H (7-17) mg/dL Creatinine 2.53 H (0.52-1.04) mg/dL Calcium 7.3 L (8.4-10.2) mg/dL Albumin (PEP) 1.54 L (3.80-4.90) g/dL Nzlaw-5-Pffelvtlo 1.07 H (0.60-1.00) g/dL Beta Globulins 0.44 L (0.60-1.30) g/dL Gamma Globulins 0.33 L (0.70-1.50) g/dL Assessment and Plan Assessment: Abdominal pain secondary to acute cholecystitis status post laparoscopic cholecystectomy. Acute kidney injury secondary to ATN. Nephrotic range proteinuria. Rule out glomerulonephritis Hypovolemic hyponatremia Hypocalcemia. with hypoalbuminemia. Normal calcium level with correction. vitamin D deficiency Hypoalbuminemia/moderate protein calorie malnutrition Abnormal urine analysis. Possible contaminant sample DVT prophylaxis l Plan: Patient be continued on IV Lasix daily. Monitor renal function. Patient is to lerating oral diet and is advanced. Nephrology is following. Encourage ambulation and incentive spirometry. Pain medications and bowel regimen. We will continue to follow closely. Further recommendations based on the clinical course. Time with Patient: Greater than 30
[2018-06-27] MEDS: HYDROcodone/APAP 5-325MG 1 EACH TAB PO PRN (03:30)
[2018-06-27 07:47] LABS: Basophils % (A) 1 %; Eosinophils # (A) 0.5 k/uL (0-0.7); Eosinophils % (A) 6 %; HCT 35.4 % (34.0-46.0); HGB 11.9 gm/dL (11.4-16.0); Lymphocytes # (A) 2.6 k/uL (1.0-4.8); Lymphocytes % (A) 36 %; MCH 30.7 pg (25.0-35.0); MCHC 33.7 g/dL (31.0-37.0); MCV 90.9 fL (80.0-100.0); Mean Platelet Volume 7.5; Monocytes # (A) 0.6 k/uL (0-1.0); Monocytes % (A) 8 %; Neutrophils # (A) 3.5 k/uL (1.3-7.7); Neutrophils % (A) 48 %; Platelet Count 456 k/uL (150-450); RBC 3.89 m/uL (3.80-5.40); RDW 13.5 % (11.5-15.5); WBC 7.2 k/uL (3.8-10.6)
[2018-06-27 07:50] VITALS: TEMP 97.8
[2018-06-27 07:58] LABS: Albumin 1.6 g/dL (3.5-5.0); Calcium 7.5 mg/dL (8.4-10.2); Potassium 3.9 mmol/L (3.5-5.1); Total Bilirubin 0.3 mg/dL (0.2-1.3); Total Protein 3.5 g/dL (6.3-8.2)
[2018-06-27] MEDS: ENOXAPARIN 30 MG/0.3 ML SYRINGE SQ SCH (08:42)
[2018-06-27] MEDS: FAMOTIDINE 20 MG/2 ML VIAL IV SCH (08:43)
[2018-06-27] MEDS: SODIUM BICARBONATE TAB 650 MG TAB PO SCH ×2 (08:43→17:30)
[2018-06-27] MEDS: FUROSEMIDE 10 MG/ML 4 ML VIAL IV SCH (08:43)
[2018-06-27 09:53] LABS: INR 0.9 (<1.2)
[2018-06-27] MEDS: HYDROmorphone 1 MG/ML 1 ML SYRINGE IVP STA ×2 (11:10→11:58)
--- NOTE | 2018-06-27 11:59 | CT ---
DATE OF EXAM: 06/27/2018 COMPARISON: CT 06/20/2018 CT DLP: 822 mGycm HISTORY: Renal failure PROCEDURE: Maximal barrier technique was utilized. After informed consent, the skin overlying a suit able path to the lower pole of the right kidney was localized using CT guidance, the skin was prepped and draped. Lidocaine was used for local anesthesia. A skin selma made with a scalpel. Using CT gu idance, a 17-gauge needle was advanced into in position at the lateral and inferior cortex of the rig ht kidney where coaxial placement of an 18-gauge needle was used and core biopsy obtained. 4 passes made in total. Hemostasis was achieved. There was no immediate complication and patient remained in stable condition. Specimen submitted to Pathology. IMPRESSION: Status post CT guided core biopsy of right renal cortex, pathology pending. This procedu re performed by the undersigned.
[2018-06-27 14:04] VITALS: BMI 23.6
--- NOTE | 2018-06-27 14:26 | P.PN ---
Subjective Progress Note Date: 06/27/18 CHIEF COMPLAINT: Abdominal pain HISTORY OF PRESENT ILLNESS: 43-year-old female who underwent laparoscopic cholecystectomy secondary to acute cholecystitis. Patient examined at the bedside. Patient reports improvement in abdominal pain. Tolerating diet. Denies nausea or vomiting. Reports BM. Scheduled for kidney biopsy today. PHYSICAL EXAM: VITAL SIGNS: Reviewed. GENERAL: Well-developed in no acute distress. HEENT: No sclera icterus. Extraocular movements grossly intact. Moist buccal mucosa. Head is atraumatic, normocephalic. ABDOMEN: Soft. Nondistended. Positive bowel sounds. Surgical incision sites clean dry and intact without drainage. NEUROLOGIC: Alert and oriented. Cranial nerves II through XII grossly intact. ASSESSMENT: 1. Acute cholecystitis, status post laparoscopic cholecystectomy 2. Chronic abdominal pain PLAN: 1. Continue current diet 2. Activity as tolerated 3. Incentive spirometry 4. Patient is cleared for discharge from a surgical standpoint. She may follow up with Dr. Nathan in one week. Nurse practitioner note has been reviewed by physician. Signing provider agrees with the documented findings, assessment, and plan of care. Objective - Vital Signs Vital signs: Vital Signs Temp 97.8 F 06/27/18 07:00 Pulse 76 06/27/18 11:35 Resp 16 06/27/18 11:35 BP 131/69 06/27/18 11:35 Pulse Ox 97 06/27/18 11:35 Intake & Output 06/26/18 06/27/18 06/27/18 18:59 06:59 18:59 Intake Total 296 250 374 Balance 296 250 374 Weight 56.699 kg Intake: Oral 296 250 374 Other: # Voids 2 1 - Labs CBC & Chem 7: 06/27/18 07:16 06/27/18 07:16 Labs: Abnormal Lab Results - Last 24 Hours (Table) 06/27/18 06/27/18 Range/Units 07:16 07:16 Plt Count 456 H (150-450) k/uL Chloride 113 H (98-107) mmol/L BUN 22 H (7-17) mg/dL Creatinine 2.41 H (0.52-1.04) mg/dL Calcium 7.5 L (8.4-10.2) mg/dL AST 38 H (14-36) U/L Total Protein 3.5 L (6.3-8.2) g/dL Albumin 1.6 L (3.5-5.0) g/dL
[2018-06-27 15:24] VITALS: RESP 17
[2018-06-27 15:31] VITALS: BP 131/90; PULSE 73
--- NOTE | 2018-06-27 16:18 | P.DS ---
Providers Date of admission: 06/20/18 17:05 Attending physician: Nidia Argueta Consults: 06/20/18 17:07 Consult Physician Routine Consulting Provider: Jae Nathan Consult Reason/Comments: acute debra pt med consult Do you want consulting provider notified?: Yes 06/22/18 12:18 Consult Physician Routine Consulting Provider: Angelica Martini Consult Reason/Comments: TRUONG Do you want consulting provider notified?: Yes Primary care physician: Stated None Hospital Course: 43-year-old wasn't female was admitted to have acute cholecystitis underwent cholecystectomy patient was also treated for acute renal failure which was initially believed to be secondary to acute tubular necrosis although patient had nephrotic range proteinuria because of which further workup was done which did not reveal any significant abnormality patient underwent a renal biopsy. Patient will follow-up with the nephrology as an outpatient patient the creatinine came down from about 3.5-2.4 continue to improve patient is making good urine patient still has some bilateral pedal edema patient was on IV Lasix which will be switched to oral and basic metabolic profile will be repeated in 3 days and patient will be referred to PCP as well and patient will be discharged in stable medical condition to home today. Patient was also treated for hypervolemic hyponatremia which improved. PHYSICAL EXAMINATION: GENERAL: The patient is alert and oriented x3, not in any acute distress. Well developed, well nourished. HEENT: Pupils are round and equally reacting to light. EOMI. No scleral icterus. No conjunctival pallor. Normocephalic, atraumatic. No pharyngeal erythema. No thyromegaly. CARDIOVASCULAR: S1 and S2 present. No murmurs, rubs, or gallops. PULMONARY: Chest is clear to auscultation, no wheezing or crackles. ABDOMEN: Soft, nontender, nondistended, normoactive bowel sounds. No palpable organomegaly. MUSCULOSKELETAL: No joint swelling or deformity. EXTREMITIES: No cyanosis, clubbing, mild pedal edema which did improve significantly since the last few days. NEUROLOGICAL: Gross neurological examination did not reveal any focal deficits. SKIN: No rashes. Assessment and Plan Assessment: Abdominal pain secondary to acute cholecystitis status post laparoscopic cholecystectomy. Acute kidney injury secondary to ATN. Nephrotic range proteinuria. Rule out glomerulonephritis Hypovolemic hyponatremia Hypocalcemia. with hypoalbuminemia. Normal calcium level with correction. vitamin D deficiency Hypoalbuminemia/moderate protein calorie malnutrition Abnormal urine analysis. Possible contaminant sample Patient Condition at Discharge: Stable Plan - Discharge Summary Discharge Rx Participant: Yes New Discharge Prescriptions: New Furosemide [Lasix] 40 mg PO DAILY #30 tablet Sodium Bicarbonate Tab 650 mg PO BID #60 tab Continue York (Unknown Dose) 1 tab PO BID PRN PRN Reason: Pain Doxylam/PE/Dm/Acetaminophen/GG [Mucinex Fast-Max Dy-Nt Cld-Flu] 2 cap PO Q6H PRN PRN Reason: COLD/FLU SYMPTOMS Discharge Medication List Doxylam/PE/Dm/Acetaminophen/GG [Mucinex Fast-Max Dy-Nt Cld-Flu] 2 cap PO Q6H PRN 06/20/18 [History] York (Unknown Dose) 1 tab PO BID PRN 06/20/18 [History] Furosemide [Lasix] 40 mg PO DAILY #30 tablet 06/27/18 [Rx] Sodium Bicarbonate Tab 650 mg PO BID #60 tab 06/27/18 [Rx] Follow up Appointment(s)/Referral(s): Angelica Martini MD [STAFF PHYSICIAN] - 1 Week (Patient to please set up follow up appointment on when the office reopens) None,Stated [Primary Care Provider] - 1-2 days Jae Nathan MD [STAFF PHYSICIAN] - 07/06/18 1:30 pm Ambulatory/Diagnostic Orders: Basic Metabolic Panel [LAB.AMB] Time Frame: 3 Days, Location: None Selected Activity/Diet/Wound Care/Special Instructions: No driving while taking York No lifting over 10 pounds You may shower. No soaking or tub baths Very light activity until you are reevaluated at your follow up appointment with your surgeon Discharge Disposition: HOME SELF-CARE
--- NOTE | 2018-06-27 22:21 | PN ---
PROGRESS NOTE Patient was seen this morning for followup for acute kidney injury and possible underlying acute GN. Patient is status post laparoscopic cholecystectomy. She is states she is feeling better. She is scheduled for kidney biopsy later on today after which patient can be discharged. PHYSICAL EXAMINATION: This morning blood pressure was 144/103. The patient is afebrile. Examination of the heart S1, S2. Examination of lungs bilateral breath sounds are heard. ABDOMEN: Soft. Examination lower extremities shows edema 1+ bilaterally. LABS: Show sodium 139, potassium 3.9, BUN 22, serum creatinine 2.41. ASSESSMENT: 1. 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 The patient is scheduled for kidney biopsy today. Serologies are negative. 2. Status post laparoscopic cholecystectomy. 3. Lower extremity edema associated with underlying nephrotic syndrome, maintained on Lasix, currently improved. Patient can be discharged on 20 mg of p.o. Lasix daily. 4. Metabolic acidosis, now resolved. PLAN: Proceed with kidney biopsy. Follow up in the office in about 1 week's time. Continue with Lasix 20 mg p.o. daily at the time of discharge. MMODL / IJN: [id number] /
== END 2018-06-27 17:35 | disposition home or self-care (01) | DRG 417 ==
LOC: EC 14:03 → 4SSUR 17:05
PROVIDERS: ADMIT Hospitalist; ATTEND Hospitalist
PROC: 0FT44ZZ Resection of Gallbladder, Percutaneous Endoscopic Approach (ICD-10-PCS; principal; 2018-06-20 17:16)
PROC: 0TB03ZX Excision of Right Kidney, Percutaneous Approach, Diagnostic (ICD-10-PCS; 2018-06-27)
DX: K81.0 Acute cholecystitis (principal); N17.0 Acute kidney failure with tubular necrosis; R18.8 Other ascites; E87.1 Hypo-osmolality and hyponatremia; E44.0 Moderate protein-calorie malnutrition; E87.2 Acidosis; N04.9 Nephrotic syndrome with unspecified morphologic changes; E83.51 Hypocalcemia; E87.70 Fluid overload, unspecified; G89.29 Other chronic pain; E86.1 Hypovolemia; E55.9 Vitamin D deficiency, unspecified; K58.9 Irritable bowel syndrome, unspecified; Z86.19 Personal history of other infectious and parasitic diseases; Z87.891 Personal history of nicotine dependence
CPT/HCPCS: 36415; 71046; 74176; 76705; 76770; 77012; 80048; 80053; 80074; 81001; 81025; 82150; 82306; 82570; 83690; 83735; 84156; 84165; 84484; 85025; 85610; 86038; 86160; 86162; 86225; 86255; 86334; 86335; 86850; 86900; 86901; 87086; 87205; 88304; 93005; 96361; 96365; 96375; 99285

== ENCOUNTER → 2018-07-02 | Outpatient (CLI) | payer SELFPAY ==
[2018-07-02 18:33] LABS: Anion Gap 4.8 mmol/L (4.00-12.00); Calcium 8.3 mg/dL (8.7-10.3); Carbon Dioxide 31.2 mmol/L (21.6-31.8)
== END ==
LOC: LABWHC1 10:59
PROVIDERS: ATTEND Internal Medicine
DX: Z51.81 Encounter for therapeutic drug level monitoring (principal); Z79.899 Other long term (current) drug therapy
CPT/HCPCS: 36415; 80048

== ENCOUNTER → 2018-07-10 | Outpatient (CLI) | payer OTHER ==
--- NOTE | 2018-07-10 10:34 | US ---
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 GB removed 06/20/2018, Previous US EXAM MEASUREMENTS: Right Kidney: 11.0 x 4.7 x 5.0 cm Left Kidney: 11.2 x 4.6 x 5.7 cm Right Kidney: No hydronephrosis or masses seen, prominent pyramids Left Kidney: No hydronephrosis or masses seen, prominent pyramids Bladder: distended, wnl Bilateral Jets seen There is no ascites. IMPRESSION: Renal sizes as described, no hydronephrosis.
== END | disposition home or self-care (01) ==
LOC: RADUSMAIN 07:52
PROVIDERS: ATTEND Internal Medicine Nephrology
DX: N02.2 Recurrent and persistent hematuria with diffuse membranous glomerulonephritis (principal)
CPT/HCPCS: 76770

== ENCOUNTER → 2018-07-31 | Outpatient (CLI) | payer OTHER ==
[2018-07-31 11:43] LABS: Basophils # (A) 0.1 k/uL (0-0.2); Basophils % (A) 1 %; Eosinophils # (A) 0.3 k/uL (0-0.7); Eosinophils % (A) 2 %; HCT 45.7 % (34.0-46.0); HGB 14.6 gm/dL (11.4-16.0); Lymphocytes # (A) 4.3 k/uL (1.0-4.8); Lymphocytes % (A) 26 %; MCH 29.7 pg (25.0-35.0); MCV 92.8 fL (80.0-100.0); Mean Platelet Volume 7.2; Monocytes # (A) 0.5 k/uL (0-1.0); Monocytes % (A) 3 %; Neutrophils % (A) 67 %; Platelet Count 365 k/uL (150-450); RBC 4.92 m/uL (3.80-5.40); RDW 13.6 % (11.5-15.5); WBC 16.3 k/uL (3.8-10.6)
[2018-07-31 15:33] LABS: Appearance,Urine Clear (Clear); Bilirubin,Urine Negative (Negative); Blood,Urine Negative (Negative); Color,Urine Light Yellow; Glucose,Urine (UA) Negative (Negative); Ketones,Urine Negative (Negative); Leukocyte Esterase,Urine Negative (Negative); Nitrite,Urine Negative (Negative); PH, Urine 5.5 (5.0-8.0); Protein,Urine Negative (Negative); Specific Gravity,Urine 1.017 (1.001-1.035); Urobilinogen,Urine <2.0 mg/dL (<2.0)
[2018-07-31 17:56] LABS: Parathyroid Hormone Intact 59.1 pg/mL (14.0-72.0)
[2018-07-31 18:41] LABS: Iron Saturation 76.61 (12.00-45.00)
[2018-07-31 18:50] LABS: Vitamin D 25 Hydroxy 25.1 ng/mL (30.0-100.0)
[2018-07-31 19:00] LABS: Albumin 4.2 g/dL (3.80-4.90); Anion Gap 11.5 mmol/L (4.00-12.00); Calcium 9.3 mg/dL (8.7-10.3); Carbon Dioxide 25.5 mmol/L (21.6-31.8); Magnesium 1.7 mg/dL (1.5-2.4); Phosphorus 3.6 mg/dL (2.4-5.1); Potassium 3.8 mmol/L (3.5-5.5); Uric Acid 4.5 mg/dL (2.9-7.7)
[2018-07-31 21:16] LABS: Total Volume 24 Hour,Urine 1700 mL
[2018-08-01 04:10] LABS: Creatinine,Urine Random 65.2 mg/dL
[2018-08-01 04:11] LABS: Total Protein,Urine Random 6.3 mg/dL (0.0-13.5)
== END | disposition home or self-care (01) ==
LOC: LABWHC1 10:43
PROVIDERS: ATTEND Internal Medicine Nephrology
DX: N39.0 Urinary tract infection, site not specified (principal); E55.9 Vitamin D deficiency, unspecified; N25.81 Secondary hyperparathyroidism of renal origin; M10.9 Gout, unspecified; N05.0 Unspecified nephritic syndrome with minor glomerular abnormality
CPT/HCPCS: 36415; 80048; 81003; 81050; 82040; 82306; 82570; 82728; 83540; 83550; 83735; 83970; 84100; 84156; 84550; 85025

== ENCOUNTER → 2022-01-04 | Outpatient (CLI) | payer OTHER ==
--- NOTE | 2022-01-05 07:45 | XR ---
EXAMINATION TYPE: XR chest 2V DATE OF EXAM: 01/04/2022 COMPARISON: 06/20/2018 TECHNIQUE: PA and lateral views submitted. HISTORY: Shortness of breath FINDINGS: The lungs are clear and there is no pneumothorax, pleural effusion, or focal pneumonia. Heart size is normal. There is hyperinflation. Hypertrophic and degenerative change spine. No overt failure. IMPRESSION: 1. No acute process. Correlate for asthma or mild COPD.
== END | disposition home or self-care (01) ==
LOC: RADXRMAIN 17:02
PROVIDERS: ATTEND Family Medicine
DX: R06.00 Dyspnea, unspecified (principal)
CPT/HCPCS: 71046

== ENCOUNTER 2022-01-07 18:09 | Emergency (ER) | payer OTHER ==
[2022-01-07 18:29] VITALS: RESP 18; TEMP 98.1
--- NOTE | 2022-01-07 20:27 | ED ---
SOB HPI - General Chief Complaint: Shortness of Breath Stated Complaint: Chest pain, Abd pain, leg swelling Time Seen by Provider: 01/07/22 20:20 Source: patient, RN notes reviewed Mode of arrival: wheelchair Limitations: no limitations - History of Present Illness Initial Comments: This is a pleasant 46-year-old female who presents to emergency department complaining of bilateral lower extremity edema. Patient states this cropped up over the past few days. Patient has been having problems with intermittent chest pain and shortness of breath since having COVID-19 on November 09. Patient ended up following up with her regular physician and was sent for testing. Patient states she did have a repeat CAT scan. I do note that the patient had a recent chest x-ray here earlier this week. No acute findings. Patient states that she has had intermittent chest wall pain going on for a long time, even before the COVID-19. She states a COVID-19 seemed to make the chest wall pain worse. Patient states she did have a bout of edema after being admitted to this hospital previously. They attributed that to fluid overload from IV hydration. Patient also had some kidney problems at that time. No headache, no fever or chills, no changes in vision or hearing, no sore throat or difficulty with speech, no neck pain, no abdominal pain, no nausea or vomiting, no changes in urination or bowel movements, no numbness or tingling, no extremity pain, no skin rashes or lesions. Past medical, surgical, social, and family history reviewed. - Related Data Home Medications Medication Instructions Recorded Confirmed Doxylam/PE/Dm/Acetaminophen/GG 2 cap PO Q6H PRN 06/20/18 06/20/18 [Mucinex Fast-Max Dy-Nt Cld-Flu] [place] (Unknown Dose) 1 tab PO BID PRN 06/20/18 06/20/18 Previous Rx's Medication Instructions Recorded Furosemide [Lasix] 40 mg PO DAILY #30 tablet 06/27/18 Sodium Bicarbonate Tab 650 mg PO BID #60 tab 06/27/18 Furosemide [Lasix] 20 mg PO DAILY #20 tab 01/08/22 Potassium Chloride 10 meq PO DAILY #20 tab 01/08/22 Allergies Allergy/AdvReac Type Severity Reaction Status Date / Time No Known Allergies Allergy Verified 06/20/18 14:30 Review of Systems ROS Statement: Those systems with pertinent positive or pertinent negative responses have been documented in the HPI. ROS Other: All systems not noted in ROS Statement are negative. Past Medical History Additional Past Medical History / Comment(s): abdominal pain problems since age 14, IBS, HPV, minimal-change disease, pancreatitis History of Any Multi-Drug Resistant Organisms: None Reported Past Surgical History: Cholecystectomy Additional Past Surgical History / Comment(s): Leep procedure x 2 Past Psychological History: No Psychological Hx Reported Smoking Status: Current every day smoker Past Alcohol Use History: Occasional Past Drug Use History: Marijuana General Exam - General Exam Comments Initial Comments: Vital signs stable, patient afebrile. Patient does not appear to be in any acute distress. Does not appear to be ill or toxic. Limitations: no limitations General appearance: alert, in no apparent distress Head exam: Present: atraumatic, normocephalic, normal inspection Eye exam: Present: normal appearance, PERRL, EOMI. Absent: scleral icterus, conjunctival injection, periorbital swelling ENT exam: Present: normal exam, normal oropharynx, mucous membranes moist, normal external ear exam. Absent: mucous membranes dry Neck exam: Present: normal inspection, full ROM. Absent: tenderness, meningismus, lymphadenopathy Respiratory exam: Present: normal lung sounds bilaterally, chest wall tenderness. Absent: respiratory distress, wheezes, rales, rhonchi, stridor, accessory muscle use, decreased breath sounds, prolonged expiratory Cardiovascular Exam: Present: regular rate, normal rhythm, normal heart sounds. Absent: systolic murmur, diastolic murmur, rubs, gallop, clicks GI/Abdominal exam: Present: soft, normal bowel sounds. Absent: distended, tenderness, guarding, rebound, rigid Extremities exam: Present: normal inspection, full ROM, normal capillary refill, pedal edema (Patient has had pitting edema noted bilaterally up to approximately mid tibial area. Distal CMS intact). Absent: tenderness, joint swelling, calf tenderness Back exam: Present: normal inspection Neurological exam: Present: alert, oriented X3, CN II-XII intact Psychiatric exam: Present: normal affect, normal mood Skin exam: Present: warm, dry, intact, normal color. Absent: rash Course Vital Signs 01/07/22 01/07/22 18:25 21:00 Temperature 98.1 F Pulse Rate 87 73 Respiratory 18 18 Rate Blood Pressure 105/73 119/68 O2 Sat by Pulse 99 100 Oximetry - Reevaluation(s) Reevaluation #1: 01/07/22 23:42 Medical record is reviewed Symptoms are improved here in the emergency department Patient is informed of results and questions answered Patient in no distress Reevaluation #2: 01/08/22 00:47 Patient reevaluated and is in no acute distress. CT angiogram of the chest reveals no evidence of pulmonary embolism or any other acute pathology. - Consultations Consultation #1: The case was discussed in detail with ED attending physician. Presentation, findings, treatment plan discussed in detail. Medical Decision Making - Medical Decision Making Differential diagnosis is wide given the patient symptomology. Congestive heart failure possible, kidney disease possible, nephrotic syndrome, dependent edema but this is less likely vascular related although the patient does have bilateral edema and recently had COVID-19. It sounds as if the patient's nonspecific chest pains have been going on for years. Made worse since having COVID-19 November 09. Patient recently saw her primary care physician and had testing ordered. Patient states she had a CAT scan done here. According to records it was not done here. I suspect it was done [facility]. Patient corroborates this after further questioning. Patient's corrected calcium is actually 9.1. Serum calcium 7.4, however, albumin is quite low at 1.8. Only this would be concerning given the patient's edema. D-dimer was elevated at 1.34. CT of the chest will be ordered as the patient does have some sensation of shortness of breath. However patient has no air hunger or increased work of breathing on my examination. Troponin was negative. BNP 118. Looking back in the patient's notes and after long discussion with the patient. 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 Patient previously had nephrotic syndrome with lower extremity edema--apparently this improved with Lasix. Patient previously has been assessed by Dr. Martini. The case was discussed in detail with ED attending physician. Presentation, findings, treatment plan discussed in detail. Urology Physician Dr. Tipton - Lab Data Result diagrams: 01/07/22 20:57 01/07/22 20:57 Lab Results 01/07/22 01/07/22 01/07/22 Range/Units 20:57 20:57 20:57 WBC 9.0 (3.8-10.6) k/uL RBC 4.91 (3.80-5.40) m/uL Hgb 15.8 (11.4-16.0) gm/dL Hct 44.7 (34.0-46.0) % MCV 91.1 (80.0-100.0) fL MCH 32.2 (25.0-35.0) pg MCHC 35.3 (31.0-37.0) g/dL RDW 12.8 (11.5-15.5) % Plt Count 353 (150-450) k/uL MPV 8.1 Neutrophils % 54 % Lymphocytes % 35 % Monocytes % 5 % Eosinophils % 4 % Basophils % 1 % Neutrophils # 4.9 (1.3-7.7) k/uL Lymphocytes # 3.1 (1.0-4.8) k/uL Monocytes # 0.4 (0-1.0) k/uL Eosinophils # 0.3 (0-0.7) k/uL Basophils # 0.1 (0-0.2) k/uL PT 9.9 (9.0-12.0) sec INR 0.9 (<1.2) APTT 28.1 (22.0-30.0) sec D-Dimer 1.34 H (<0.60) mg/L FEU Sodium 130 L (137-145) mmol/L Potassium 3.9 (3.5-5.1) mmol/L Chloride 105 (98-107) mmol/L Carbon Dioxide 29 (22-30) mmol/L Anion Gap -4 mmol/L BUN 7 (7-17) mg/dL Creatinine 0.58 (0.52-1.04) mg/dL Est GFR (CKD-EPI)AfAm >90 (>60 ml/min/1.73 sqM) Est GFR (CKD-EPI)NonAf >90 (>60 ml/min/1.73 sqM) Glucose 72 L (74-99) mg/dL Calcium 7.4 L (8.4-10.2) mg/dL Magnesium 1.8 (1.6-2.3) mg/dL Total Bilirubin 0.5 (0.2-1.3) mg/dL AST 49 H (14-36) U/L ALT 41 H (4-34) U/L Alkaline Phosphatase 56 (38-126) U/L Troponin I (0.000-0.034) ng/mL NT-Pro-B Natriuret Pep pg/mL Total Protein 4.0 L (6.3-8.2) g/dL Albumin 1.8 L (3.5-5.0) g/dL 01/07/22 01/07/22 Range/Units 20:57 20:57 WBC (3.8-10.6) k/uL RBC (3.80-5.40) m/uL Hgb (11.4-16.0) gm/dL Hct (34.0-46.0) % MCV (80.0-100.0) fL MCH (25.0-35.0) pg MCHC (31.0-37.0) g/dL RDW (11.5-15.5) % Plt Count (150-450) k/uL MPV Neutrophils % % Lymphocytes % % Monocytes % % Eosinophils % % Basophils % % Neutrophils # (1.3-7.7) k/uL Lymphocytes # (1.0-4.8) k/uL Monocytes # (0-1.0) k/uL Eosinophils # (0-0.7) k/uL Basophils # (0-0.2) k/uL PT (9.0-12.0) sec INR (<1.2) APTT (22.0-30.0) sec D-Dimer (<0.60) mg/L FEU Sodium (137-145) mmol/L Potassium (3.5-5.1) mmol/L Chloride (98-107) mmol/L Carbon Dioxide (22-30) mmol/L Anion Gap mmol/L BUN (7-17) mg/dL Creatinine (0.52-1.04) mg/dL Est GFR (CKD-EPI)AfAm (>60 ml/min/1.73 sqM) Est GFR (CKD-EPI)NonAf (>60 ml/min/1.73 sqM) Glucose (74-99) mg/dL Calcium (8.4-10.2) mg/dL Magnesium (1.6-2.3) mg/dL Total Bilirubin (0.2-1.3) mg/dL AST (14-36) U/L ALT (4-34) U/L Alkaline Phosphatase (38-126) U/L Troponin I <0.012 (0.000-0.034) ng/mL NT-Pro-B Natriuret Pep 118 pg/mL Total Protein (6.3-8.2) g/dL Albumin (3.5-5.0) g/dL - EKG Data -: EKG Interpreted by Me EKG shows normal: sinus rhythm (68), axis (Normal), intervals (Normal), QRS complexes (Normal), ST-T waves (No acute change) Rate: normal (68) - Radiology Data Radiology results: report reviewed, image reviewed Disposition Clinical Impression: Hypoalbuminemia, Peripheral edema, Recurrent chest pain, History of nephrotic syndrome, Hyponatremia, Chronic chest wall pain Disposition: HOME SELF-CARE Condition: Stable Instructions (If sedation given, give patient instructions): Leg Edema (ED), Hyponatremia (ED) Additional Instructions: The leg swelling is due to low albumin and your blood. Her kidney function was normal. However this still may be related to kidney disease. Especially since she previously had nephrotic syndrome. Call him Monday morning to set up a follow-up appointment with the registered nurse cardiac telemetry, Dr. Martini. Elevate her legs as much as possible. We can try the furosemide 20 mg daily. Make sure you're taking the potassium chloride with the furosemide. Additionally, he did have s lightly low sodium noted here today. This will also be something to discussed with the registered nurse cardiac telemetry. Follow-up with your regular physician as directed. Return to the ER immediately if any symptoms worsen, new symptoms arise, or any other problems develop. Is patient prescribed a controlled substance at d/c from ED?: No Referrals: Angelica Martini MD [STAFF PHYSICIAN] - 01/10/22 Haseeb Fuentes DO [Primary Care Provider] - 1-2 days Time of Disposition: :22
[2022-01-07] MEDS ORDERED: FUROSEMIDE 10 MG/ML 4 ML VIAL IV STA (20:29)
[2022-01-07 21:01] LABS: Basophils # (A) 0.1 k/uL (0-0.2); Basophils % (A) 1 %; Eosinophils # (A) 0.3 k/uL (0-0.7); Eosinophils % (A) 4 %; HCT 44.7 % (34.0-46.0); HGB 15.8 gm/dL (11.4-16.0); Lymphocytes # (A) 3.1 k/uL (1.0-4.8); Lymphocytes % (A) 35 %; MCH 32.2 pg (25.0-35.0); MCHC 35.3 g/dL (31.0-37.0); MCV 91.1 fL (80.0-100.0); Mean Platelet Volume 8.1; Monocytes # (A) 0.4 k/uL (0-1.0); Monocytes % (A) 5 %; Neutrophils # (A) 4.9 k/uL (1.3-7.7); Neutrophils % (A) 54 %; Platelet Count 353 k/uL (150-450); RBC 4.91 m/uL (3.80-5.40); RDW 12.8 % (11.5-15.5)
[2022-01-07 21:16] LABS: ALT 41 U/L (4-34); AST 49 U/L (14-36); African American GFR (CKD) >90 (>60 ml/min/1.73 sqM); Albumin 1.8 g/dL (3.5-5.0); Alkaline Phosphatase 56 U/L (38-126); Anion Gap -4 mmol/L; Blood Urea Nitrogen 7 mg/dL (7-17); Calcium 7.4 mg/dL (8.4-10.2); Carbon Dioxide 29 mmol/L (22-30); Chloride 105 mmol/L (98-107); Glucose 72 mg/dL (74-99); Magnesium 1.8 mg/dL (1.6-2.3); Non-African American GFR(CKD) >90 (>60 ml/min/1.73 sqM); Potassium 3.9 mmol/L (3.5-5.1); Sodium 130 mmol/L (137-145); Total Bilirubin 0.5 mg/dL (0.2-1.3)
[2022-01-07 21:21] LABS: INR 0.9 (<1.2); Partial Thromboplastin Time 28.1 sec (22.0-30.0); Prothrombin Time 9.9 sec (9.0-12.0)
--- NOTE | 2022-01-08 00:46 | CT ---
EXAMINATION TYPE: CT chest angio for PE DATE OF EXAM: 01/08/2022 COMPARISON: None HISTORY: SOB. elevated D-dimer CT DLP: 210.8 mGycm Automated exposure control for dose reduction was used. CONTRAST: Performed with IV Contrast, patient injected with 68ml mL of Isovue 370. Images obtained from the thoracic inlet to the diaphragm with the IV contrast. There are Three-D post processed images. There is no mediastinal adenopathy. There no hilar masses. Thoracic aorta is intact. No aneurysm or d issection. Heart size is normal. No pericardial effusion. The lungs are clear of infiltrate. No pleural effusion or pneumothorax. There is no evidence of filling defect in the pulmonary arteries. Upper abdominal soft tissues are in tact. IMPRESSION: Normal exam. No evidence of pulmonary embolism.
[2022-01-08 01:51] LABS: Glucose,Whole Blood 86 mg/dL (70-110)
[2022-01-08 02:13] VITALS: BP 102/60; PULSE 82
== END 2022-01-08 02:13 | disposition home or self-care (01) ==
LOC: EC 18:09
DX: E88.09 Other disorders of plasma-protein metabolism, not elsewhere classified (principal); R60.9 Edema, unspecified; R07.9 Chest pain, unspecified; N04.9 Nephrotic syndrome with unspecified morphologic changes; E78.5 Hyperlipidemia, unspecified; F17.200 Nicotine dependence, unspecified, uncomplicated; F12.90 Cannabis use, unspecified, uncomplicated
CPT/HCPCS: 36415; 93005; 85379; 83880; 80053; 83735; 84484; 85025; 85610; 85730; 99285; J1940; 71275; 83690

== ENCOUNTER → 2024-06-20 | Outpatient (CLI) | payer OTHER ==
[2024-06-20 14:00] VITALS: BP 96/49; PULSE 77; RESP 18; TEMP 97.6
--- NOTE | 2024-06-20 14:22 | P.PAINPG ---
PQRS Measure Charge Sheet Comment: HISTORY OF PRESENT ILLNESS: A 49 yr old female as a referral from Dr Lopez presents today w severe and chronic neck pain > 1 yr secondary to radiculopathy, spondylosis and facet arthropathy without myelopathy for evaluation. Pt states pain level is provoked at 7 /10 in intensity, constant, localized in the cervical spine, predominantly axial, stabbing in character w occasional shooting pain towards the BL shoulders. Pain is provoked by lifting. Pain is alleviated by chiropractic treatments semi monthly since Mar 2024, physician guided home exercises 4-5 times weekly since May 2024, medications, manual massage, heat, ice, repositioning and rest . Cervical disability score at 24. PMH: OA, IBS, HPV, Pancreatitis, RLS, Vitamin D deficiency PSH: Cholecystectomy, LEEP x2 SH: Daily tobacco use, No ETOH abuse, Cannabis use FH: Non contributory All: See list Meds: See list incl Neurontin, Celebrex, Aleve REVIEW OF ORGAN SYSTEMS: CONSTITUTIONAL: No fevers or chills. No recent weight loss. NEUROLOGICAL: + numbness and tingling along the distal extremities. No seizure disorders or headaches. MUSCULOSKELETAL: + pain PSYCHIATRIC: Denies current depression or suicidal thoughts. Physical Examinations : Constitutional : Cooperative , not in acute distress . Neurologic : Cranial nerve II to XII intact. No focal neurological deficits. Psychiatric : alert & oriented x 3. Matching mood & appropriate affect. Judgment & insight intact. Musculoskeletal : Cervical Spine Motor strength in the deltoid and biceps: Normal right side. Normal Left side Motor strength biceps and the wrist extensors: Normal right side . Normal left side Motor strength in the triceps muscle: Normal right side. Normal left side Deep tendon reflexes: Normal at the biceps. Normal at Brachioradialis. Normal at triceps Vertebral body tenderness to deep palpation over C6 Cervical facet loading test: positive bilaterally Spurling test: positive bilaterally Neck distraction test: positive BL C6- C7 Gabriela sign: positive bilaterally Lumbar spine Motor strength lower extremities ,thigh and legs 5/5 Right side , 5/5 Left side Deep tendon reflexes : Normal Knee Jerk. Normal Ankle Jerk Vertebral body tenderness over Chappell Test positive Lumbar facet Loading Test: positive Right / positive Left Range of motion of the lumbar spine Flexion 30 degrees, extension 10 degrees Straight Leg Raise test: Left/ Right positive at degrees Robby test: positive right / positive left. Severe tenderness over the Sacroiliac joint on the Right / Left sides Gaenslen test: positive bilaterally Seated flexion test: positive bilaterally. Sacral spine : Severe tenderness over the Sacroiliac joint: right side / left side Range of motion: Flexion of the lumbar spine <60 degrees Range of motion: Extension of the lumbar spine <20 degrees Gaenslen's Test positive Robby test: positive right side / left side Thigh Thrust Test Sacral Thrust Test Imaging: MRI noncontrast of the cervical spine from 05/27/2024 reviewed Assessment/ Plan : C3-T1 radiculopathy, C4-C6 facet arthropathy Recommendation of TAYLOR C6-C7 #1. Would also benefit from BL MBB C4-C6. Risks, benefits of procedure discussed and patient verbalized understanding. Admits to anti- coagulant use or medical history of diabetes. Protocol for discontinuation/ continuation of medications stephy procedure discussed. All questions answered. I have spent greater than 30 minutes on patient care today. Dr Flores was available by phone for the evaluation of this patient. The time was used to review the medical records including relevant urine studies and Prescription history (MAPs), review of the available imaging, evaluation and examination of the patient, coordination of care with the medical staff and if applicable referring physicians, as well as creation of the medical record PQRS Narrative: Smoking Status Former smoker Home Medications: Ambulatory Orders Doxylam/PE/Dm/Acetaminophen/GG [Mucinex Fast-Max Dy-Nt Cld-Flu] 2 cap PO Q6H PRN 06/20/18 [place] (Unknown Dose) 1 tab PO BID PRN 06/20/18 Furosemide [Lasix] 40 mg PO DAILY #30 tablet 06/27/18 Sodium Bicarbonate Tab 650 mg PO BID #60 tab 06/27/18 Furosemide [Lasix] 20 mg PO DAILY #20 tab 01/08/22 Furosemide [Lasix] 20 mg PO DAILY #20 tab 01/08/22 Potassium Chloride [Potassium Chloride ER (K-Dur GEQ)] 10 meq PO DAILY #20 tab 01/08/22 Potassium Chloride [Potassium Chloride ER (K-Dur GEQ)] 10 meq PO DAILY #20 tab 01/08/22 Controlled Substance Measures - Controlled Substance Measures Is patient prescribed a controlled substance at discharge?: No
== END ==
LOC: PNWHC3 11:56
PROVIDERS: ATTEND Specialist
DX: M47.23 Other spondylosis with radiculopathy, cervicothoracic region (principal); F12.90 Cannabis use, unspecified, uncomplicated; Z87.891 Personal history of nicotine dependence
CPT/HCPCS: 99211

== ENCOUNTER 2024-07-09 07:20 | Day surgery (SDC) | payer OTHER ==
[2024-07-09] MEDS ORDERED: LACTATED RINGERS 1,000 ML IV SCH ×2 (07:56)
[2024-07-09 08:19] VITALS: TEMP 98.1
[2024-07-09] MEDS ORDERED: DEXAMETHASONE SOD PHOSPHATE 10 MG/ML 1 ML VIAL ONE (08:31)
[2024-07-09] MEDS ORDERED: IOPAMIDOL M200 10 ML VIAL ONE (08:31)
--- NOTE | 2024-07-09 08:40 | P.PCN ---
Date of Procedure: 07/09/24 Procedure(s) Performed: . PROCEDURE 1. Cervical epidural steroid injection under fluoroscopic guidance, C6-7 (fluoroscopy images available in the radiology department ) 2. Cervical epidurogram. PREOPERATIVE DIAGNOSIS: 1- Cervical radiculopathy., 2-cervical spondylosis with cervical Facet arthropathy without myelopathy. POSTOPERATIVE DIAGNOSIS: : 1- Cervical radiculopathy. 2-cervical spondylosis with cervical Facet arthropathy without myelopathy. 4-cervical spinal stenosis ANESTHESIA: Local anesthesia with lidocaine 1% 3 ml only EBL 0 PROCEDURE INDICATION: The patient with neck pain and radiculitis unresponsive to conservative treatment consents for procedure. PROCEDURE DESCRIPTION / TECHNIQUE: The patient was seen and identified in the preoperative area. Risks, benefits, complications, including but not limited to infections ,bleeding , allergic reactions to the medications ,and not complete pain releife, and alternatives were discussed with the patient, the patient agreed to proceed with the procedure and signed the consent. Patient was taken to the OR and time out was completed. The patient was placed in the prone position on the procedure table. A pillow was placed under the patients chest to increase the cervical interlaminar space. The cervical area was prepped and draped in the usual sterile fashion. Vital signs were closely monitored during the procedure. Using anterior-posterior fluoroscopy, the C6-7 interlaminar space was identified and the skin over this site was marked and then infiltrated with 1% lidocaine subcutaneously. Subsequently, a 20-gauge 3-1/2-inch Tuohy epidural needle was inserted and advanced toward the epidural space by means of the ``hanging-drop technique and guided by AP and lateral fluoroscopy. The correct needle position in the epidural space was verified with the injection of 2 mL of the water soluble contrast dye Isovue-200 and observing an excellent epidurogram with the epidural spread of the dye, after negative aspiration for blood and CSF and in the absence of paresthesias. then, mixture containing 20 mg Dexamethasone and 2 ml of preservative-free normal saline injected and a washout of epidurogram was seen. Needle was withdrawn intact, skin was cleansed, and bandages were applied. Complications= none. Disposition= patient was placed in supine position and transferred to the recovery room area in stable condition and there was no evidence of upper or lower extremity motor or sensory deficit after the procedure patient was discharged from recovery room after discharge criteria met and home discharge instructions was given by the staff and patient will follow with the pain clinic in 2-4 weeks
--- NOTE | 2024-07-09 08:46 | FL ---
EXAMINATION TYPE: FL guided pain mgmt statistic Intraoperative/procedural fluoroscopic services were provided. CLINICAL INDICATION:Female, 49 years old with history of Cerv Epid Inj; , PHH FINDINGS: Fluoroscopic image demonstrates cervical epidural injection. No radiographic evidence for complicatio n. Total fluoroscopy time is 5.3 seconds. DAP: 0.32020 mGym2 Please see the operative/procedural note for further details. [facility], , 07/09/2024 8:43 AM
[2024-07-09 08:48] VITALS: RESP 18
[2024-07-09 09:08] VITALS: BP 103/71; PULSE 68
== END 2024-07-09 09:15 | disposition home or self-care (01) ==
LOC: ORPAIN 07:20
PROVIDERS: ATTEND Specialist
DX: M47.22 Other spondylosis with radiculopathy, cervical region (principal); M48.02 Spinal stenosis, cervical region; Z79.1 Long term (current) use of non-steroidal anti-inflammatories (NSAID)
CPT/HCPCS: 81025; 62321; J1100; Q9966

== ENCOUNTER 2024-09-03 12:24 | Day surgery (SDC) | payer OTHER ==
[2024-09-02 12:46] VITALS: BMI 20.1
[2024-09-03] MEDS: IV FLUID CONTINUATION 1,000 ML IV ONE ×2 (12:35→13:55)
[2024-09-03 13:01] VITALS: RESP 16; TEMP 97.4
[2024-09-03] MEDS: LACTATED RINGERS 1,000 ML IV SCH (13:05)
[2024-09-03] MEDS ORDERED: fentaNYL (PF) 50 MCG/ML 2 ML AMP ONE (13:31)
[2024-09-03] MEDS ORDERED: MIDAZOLAM 2 MG/2 ML VIAL ONE (13:31)
[2024-09-03] MEDS ORDERED: ROPIVACAINE 5 MG/ML 30 ML VIAL ONE (13:31)
--- NOTE | 2024-09-03 13:56 | P.PCN ---
Description of Procedure: Preprocedure diagnosis. Cervical facet joint arthropathy, cervical spine spondylosis, cervical degenerative disc disease. Postprocedure diagnosis. As above. Procedure done. Bilateral C4-5, C5-6 facet joint (C4, C5, C6 medial branch of dorsal ramus) diagnostic injection with local anesthetics under fluoroscopic guidance. Anesthesia. IV sedation of Versed 2milligram, fentanyl 50 micrograms give in OR. Continuous pulse ox, EKG, blood pressure and verbal communication was maintained with the patient in OR. Sedation time- [id number] end [id number] . Blood loss. None. Indication. Patient has got the diagnoses of cervical spondylolysis, facet joint arthropathy with neck pain. Discussed with the patient procedure, alternatives, complications including infection, bleeding, nerve damage, paralysis all of which could be permanent. Patient understands and all questions are answered. Procedure note. After getting consent patient in OR in prone position. Back of the neck was prepped with chlorhexidine and draped in sterile fashion. After injecting 3 mL of plain 1% lidocaine subcutaneously, a 22-gauge spinal needle was introduced under tunnel vision of the fluoroscope AP view at the waist of the articular pillar (lateral mass) at C4 vertebral level. In the lateral view of the fluoroscope it was confirmed that the tip of the needle stayed within the dorsal half of the articular pillar (lateral mass). So, right C4-5 facet joint was targeted by blocking right C4 and C5 medial branch, right C5-6 facet joint was targeted by blocking right C5 and C6 medial branch. In exactly the same way , after subcutaneous injection of lidocaine, 22-gauge spinal needles were introduced under tunnel vision of the fluoroscope AP view at the waist of the articular pillars (lateral mass) at C5 and C6 vertebral level. In the lateral view of the fluoroscope it was confirmed that the tip of the needle stayed within the dorsal half of the articular pillar (lateral mass). At each needle, 0.5 mL of 0.5% ropivacaine preservative-free was injected. In exactly same way left C4-5, C5-6 facet joints were targeted by blocking left C4, C5, C6 medial branch of dorsal ramus. After the procedure needle was taken out and bandage was applied. Disposition. Patient tolerated the procedure well. No complication. Discharged home in stable condition.
--- NOTE | 2024-09-03 13:57 | FL ---
Fluoroscopy INDICATION: Pain FINDINGS: Fluoroscopy time: 16.4 seconds. Total dose area product (DAP) in uGy*m?, mGy*cm? (or similar): 0.23869 Images obtained: 3. Images document [place] directed towards the cervical spine IMPRESSION: 1. Documentation of fluoroscopy. [facility], , 09/03/2024 1:55 PM
[2024-09-03 14:15] VITALS: BP 102/56; PULSE 70
== END 2024-09-03 14:34 | disposition home or self-care (01) ==
LOC: ORPAIN 12:24
PROVIDERS: ATTEND Pain Medicine Interventional Pain Medicine
DX: M47.812 Spondylosis without myelopathy or radiculopathy, cervical region (principal); M50.322 Other cervical disc degeneration at C5-C6 level
CPT/HCPCS: 81025; 64490; 64491; J2250; J3010; J2795; 99152

== ENCOUNTER → 2024-09-30 | Outpatient (CLI) | payer OTHER ==
[2024-09-30 12:44] VITALS: BP 115/84; PULSE 81; RESP 17
--- NOTE | 2024-10-02 08:00 | P.PAINPG ---
PQRS Measure Charge Sheet Comment: HISTORY OF PRESENT ILLNESS: A 49 yr old female presents today w severe and chronic neck pain > 1 yr secondary to radiculopathy, spondylosis and facet arthropathy without myelopathy for evaluation s/p BL MBB C4-C5/ C5-C6 #1. Pt states she experienced 90% pain relief x 4 days s/p procedure. Pt states pain level is provoked at 3-5 /10 in intensity, constant, localized in the cervical spine, predominantly axial, stabbing in character w occasional shooting pain towards the BL shoulders. Pain is provoked by lifting. Pain is alleviated by chiropractic treatments semi monthly since Mar 2024, physician guided home exercises 4-5 times weekly since May 2024, medications, manual massage, heat, ice, repositioning and rest . Cervical disability score at 24. Interventional procedures include TAYLOR C6-C7 x1, BL MBB C4-C6 x1 Medications include Neurontin, Celebrex, Aleve, Cannabis REVIEW OF ORGAN SYSTEMS: CONSTITUTIONAL: No fevers or chills. No recent weight loss. NEUROLOGICAL: + numbness and tingling along the distal extremities. No seizure disorders or headaches. MUSCULOSKELETAL: + pain PSYCHIATRIC: Denies current depression or suicidal thoughts. Physical Examinations : Constitutional : Cooperative , not in acute distress . Neurologic : Cranial nerve II to XII intact. No focal neurological deficits. Psychiatric : alert & oriented x 3. Matching mood & appropriate affect. Judgment & insight intact. Musculoskeletal : Cervical Spine Motor strength in the deltoid and biceps: Normal right side. Normal Left side Motor strength biceps and the wrist extensors: Normal right side . Normal left side Motor strength in the triceps muscle: Normal right side. Normal left side Deep tendon reflexes: Normal at the biceps. Normal at Brachioradialis. Normal at triceps Vertebral body tenderness to deep palpation over C6 Cervical facet loading test: positive BL C4-C5/ C5-C6 Spurling test: positive bilaterally Neck distraction test: positive BL C6- C7 Gabriela sign: positive bilaterally Lumbar spine Motor strength lower extremities ,thigh and legs 5/5 Right side , 5/5 Left side Deep tendon reflexes : Normal Knee Jerk. Normal Ankle Jerk Vertebral body tenderness over Chappell Test positive Lumbar facet Loading Test: positive Right / positive Left Range of motion of the lumbar spine Flexion 30 degrees, extension 10 degrees Straight Leg Raise test: Left/ Right positive at degrees Robby test: positive right / positive left. Severe tenderness over the Sacroiliac joint on the Right / Left sides Gaenslen test: positive bilaterally Seated flexion test: positive bilaterally. Sacral spine : Severe tenderness over the Sacroiliac joint: right side / left side Range of motion: Flexion of the lumbar spine <60 degrees Range of motion: Extension of the lumbar spine <20 degrees Gaenslen's Test positive Robby test: positive right side / left side Thigh Thrust Test Sacral Thrust Test Imaging: MRI non contrast of the cervical spine from 05/27/2024 reviewed Assessment/ Plan : C3-T1 radiculopathy, C4-C6 facet arthropathy Recommendation of CELESTE ALLEN C4-C5/ C5-C6 #2. Risks, benefits of procedure discussed and patient verbalized understanding. Admits to anti- coagulant use or medical history of diabetes. Protocol for discontinuation/ continuation of medications stephy procedure discussed. Minimal anesthesia including Fentanyl and Versed if clinically indicated. All questions answered. I have spent greater than 30 minutes on patient care today. Dr Flores was available by phone for the evaluation of this patient. The time was used to review the medical records including relevant urine studies and Prescription history (MAPs), review of the available imaging, evaluation and examination of the patient, coordination of care with the medical staff and if applicable referring physicians, as well as creation of the medical record PQRS Narrative: Smoking Status Former smoker Hx Alcohol Use (MH) No Home Medications: Ambulatory Orders "Gut Enzyme" Supplement 1 dose PO DAILY 09/02/24 Acetaminophen Tab [Tylenol Tab] 500 mg PO Q6H PRN 09/02/24 Ibuprofen [Motrin] 400 mg PO Q8HR PRN 09/02/24 Controlled Substance Measures - Controlled Substance Measures Is patient prescribed a controlled substance at discharge?: No
== END ==
LOC: PNWHC3 12:11
PROVIDERS: ATTEND Specialist
DX: M47.23 Other spondylosis with radiculopathy, cervicothoracic region (principal); Z87.891 Personal history of nicotine dependence
CPT/HCPCS: 99212